=== PATIENT | male | born 1945 | race Caucasian/White ===

== ENCOUNTER → 2017-04-03 | Outpatient (CLI) | payer MEDICARE ==
[2017-04-03 10:20] LABS: BASO # 0.1 10^3/uL (0.0-0.2); BASO % 0.8 % (0.0-1.0); EOS # 0.1 10^3/uL (0.0-0.50); EOS % 1.1 % (0.0-3.0); IMMATURE GRANULOCYTE % 0.4 % (0-0); LYMPH # 1.4 10^3/uL (1.5-4.5); LYMPH % 19.3 % (24.0-44.0); MEAN CORPUSCULAR HEMOGLOBIN 32.5 pg (27.0-33.0); MEAN CORPUSCULAR HGB CONC 34.4 g/dl (32.0-36.5); MEAN CORPUSCULAR VOLUME 94.4 fl (80.0-96.0); MONO # 0.7 10^3/uL (0.0-0.8); MONO % 9.2 % (0.0-5.0); NEUTROPHILS % 69.2 % (36.0-66.0); PLATELET COUNT, AUTOMATED 210 10^3/uL (150-450); RED CELL DISTRIBUTION WIDTH 12.2 % (11.5-14.5); WHITE BLOOD COUNT 7.3 10^3/uL (4.0-10.0)
[2017-04-03 10:56] LABS: ANION GAP 5 MEQ/L (8-16); BLOOD UREA NITROGEN 15 MG/DL (7-18); CALCIUM LEVEL 8.9 MG/DL (8.8-10.2); CARBON DIOXIDE LEVEL 29 MEQ/L (21-32); CHLORIDE LEVEL 104 MEQ/L (98-107); CREATININE FOR GFR 0.98 MG/DL (0.70-1.30); GLOMERULAR FILTRATION RATE > 60.0 (>42); GLUCOSE, FASTING 97 MG/DL (83-110); POTASSIUM SERUM 4.4 MEQ/L (3.5-5.1); SODIUM LEVEL 138 MEQ/L (136-145)
== END ==
LOC: M LAB 09:48
PROVIDERS: ATTEND Physician Assistant
DX: R94.39 Abnormal result of other cardiovascular function study (principal)

== ENCOUNTER → 2018-02-15 | Outpatient (REF) | payer MEDICARE ==
[2018-02-16 12:42] LABS: HEPATITIS C VIRUS ABY INDEX 0.2 INDEX (<0.8)
== END ==
LOC: M LAB REF 12:50
DX: Z11.59 Encounter for screening for other viral diseases (principal)
CPT/HCPCS: 86803

== ENCOUNTER → 2018-08-20 | Outpatient (REF) | payer MEDICARE ==
[2018-08-22 00:06] LABS: Lyme Disease IgG/IgM Antibodie <0.91 ISR (0.00-0.90); Lyme Disease IgM Ab Quantitati <0.80 index (0.00-0.79)
== END ==
LOC: M LAB REF 12:28
PROVIDERS: ATTEND Nurse Practitioner Adult Health
DX: Z11.59 Encounter for screening for other viral diseases (principal)

== ENCOUNTER → 2020-10-28 | Outpatient (CLI) | payer MEDICARE ==
[~2020-10-28] MED LIST: ATOR40TA75 PO; BISO5TAB14 PO; ECOT81TA5 PO; FINA5TAB2 PO; INTRTAB PO; LISI20TA33 PO; VITA500C19 PO
== END ==
LOC: M LABSMTC 13:30
PROVIDERS: ATTEND Anesthesiology
DX: Z01.812 Encounter for preprocedural laboratory examination (principal); Z20.822 Contact with and (suspected) exposure to COVID-19

== ENCOUNTER 2020-11-02 08:11 | Day surgery (SDC) | payer MEDICARE ==
[~2020-11-02] VITALS: Ht 175.3 cm; Wt 70.3 kg
[~2020-11-02 08:11] MED LIST changes: +CEFUROXIME 1MG/0.1ML INTRACAMERAL INJ As Ordered ONE; +DUOVISC (0.50ML VISCOAT/0.55ML PROVISC) OPHTH KIT As Ordered ONE; +MIDAZOLAM INJ 2MG/2ML VIAL (J2250 PER 1MG) As Ordered ONE; +OFLOXACIN 0.3 % (OCUFLOX) OPTH SOL 5ML OS ONE; +PHENYLEPHRINE 2.5% OPHTH SOL 2ML OS ONE; +POVIDONE-IODINE 5% OPHTH PREP SOL 30ML As Ordered ONE; +PROPARACAINE 0.5% OPHTH SOL 15ML OS ONE; +TROPICAMIDE 1% OPHTH SOLN 2ML OS ONE; +fentaNYL 100 MCG/2 ML INJECTION (J3010) As Ordered ONE
[2020-11-02] MEDS ORDERED: BSS IRR 500ML/OMIDRIA 4ML IRR BAG (OR ONLY) As Ordered ONE (08:28)
[2020-11-02] MEDS ORDERED: ACETYLCHOLINE OPHTH SOLN 1% 2ML (MIOCHOL-E) As Ordered ONE (10:30)
[2020-11-02] MEDS ORDERED: DUOVISC (0.50ML VISCOAT/0.55ML PROVISC) OPHTH KIT As Ordered ONE (10:31)
[2020-11-02 11:40] VITALS: BP 171/79
--- NOTE | 2020-11-04 10:53 | RO ---
OPERATIVE NOTE DATE OF OPERATION: 11/02/2020 PREOPERATIVE DIAGNOSIS: 1. Visually significant nuclear sclerotic cataract, left eye. POSTOPERATIVE DIAGNOSIS: 1. Visually significant nuclear sclerotic cataract, left eye. PROCEDURE: 1. Cataract extraction with use of phacoemulsification, and placement of intraocular lens, [id number], 18.0 D, left eye. SURGEON: Bismark Elise DO [employer] PR[employer] OPERATOR: ANESTHESIA: Local (Omidria) with MAC. COMPLICATIONS: None POSTOPERATIVE CONDITION: Stable INDICATIONS FOR SURGERY: 1. Blurred vision affecting patient's activities of daily living. DESCRIPTION OF PROCEDURE: The patient was seen in the preoperative area and properly identified. The correct operative eye was identified and marked. The patient received topical anesthetic, antibiotics, and topical dilating drops. The patient was then transferred to the operating room. The correct side was re-identified and a time out was performed. The eye was prepped and draped in a sterile fashion. The eyelids were isolated with Tegaderm tape and the lids were held open with an adjustable speculum. A 1.0 mm paracentesis incision was made. Omidria was then injected into the anterior chamber. Viscoelastic was then injected into the anterior chamber through the paracentesis. Using a 2.4 mm sharp-tipped keratome, the anterior chamber was entered via a temporal clear cornea incision. A continuous curvilinear capsulorrhexis was created with Utrata forceps. Hydrodissection was performed with BSS on a blunt cannula until the nucleus was able to rotate freely. The crystalline lens was phacoemulsified and aspirated. Irrigation/aspiration was used to remove the cortical material Cohesive viscoelastic was placed into the capsular bag to deepen it. The implant was placed into the capsular bag and allowed to unfold. Placement was confirmed by visualizing the anterior capsulorrhexis. Irrigation/aspiration was used to remove the viscoelastic. The clear corneal incision was hydrated with BSS on a blunt cannula. The lens was well positioned. Intracameral antibiotic was injected into the anterior chamber. The incisions were then tested for leaks and found to be negative. The eye was then palpated for appropriate pressure and adjusted accordingly with BSS. The eyelid speculum was then carefully removed. A shield was placed over the eye. The patient tolerated the procedure well and was discharge to the recovery unit in a stable condition.
== END 2020-11-02 11:40 | disposition home or self-care (01) ==
LOC: M SDC 08:11
PROVIDERS: ATTEND Ophthalmology
DX: H25.12 Age-related nuclear cataract, left eye (principal); I11.9 Hypertensive heart disease without heart failure; I25.2 Old myocardial infarction; Z95.5 Presence of coronary angioplasty implant and graft; R94.31 Abnormal electrocardiogram [ECG] [EKG]; E78.00 Pure hypercholesterolemia, unspecified; K21.9 Gastro-esophageal reflux disease without esophagitis; K59.00 Constipation, unspecified; M19.90 Unspecified osteoarthritis, unspecified site; R51.9 Headache, unspecified; R06.83 Snoring; N40.0 Benign prostatic hyperplasia without lower urinary tract symptoms; Z87.891 Personal history of nicotine dependence; Z79.899 Other long term (current) drug therapy; Z79.82 Long term (current) use of aspirin
CPT/HCPCS: 66984; J1097; J2250; J3010; V2632

== ENCOUNTER 2021-02-28 19:55 | Emergency (ER) | payer MEDICARE ==
[~2021-02-28] VITALS: Ht 177.8 cm; Wt 68.0 kg
[~2021-02-28 19:55] MED LIST changes: -CEFUROXIME 1MG/0.1ML INTRACAMERAL INJ As Ordered ONE; -DUOVISC (0.50ML VISCOAT/0.55ML PROVISC) OPHTH KIT As Ordered ONE; -MIDAZOLAM INJ 2MG/2ML VIAL (J2250 PER 1MG) As Ordered ONE; -OFLOXACIN 0.3 % (OCUFLOX) OPTH SOL 5ML OS ONE; -PHENYLEPHRINE 2.5% OPHTH SOL 2ML OS ONE; -POVIDONE-IODINE 5% OPHTH PREP SOL 30ML As Ordered ONE; -PROPARACAINE 0.5% OPHTH SOL 15ML OS ONE; -TROPICAMIDE 1% OPHTH SOLN 2ML OS ONE; -fentaNYL 100 MCG/2 ML INJECTION (J3010) As Ordered ONE
--- OUTSIDE RECORDS SUMMARY | 2021-02-28 20:42 | CCD | Continuity of Care Document ---
Author Author Graeme Jules Organization Unknown Address [address] [facility] [address] [place] [address] Phone [phone] Care Team Providers Care Ear Nose Throat Physician Name Role Phone Fortino Fajardo MD AUTM [phone] Lucinda Meade MD AUTM [phone] Vickie Jules AUTM [phone] Bismark Elise DO AUTM [phone] Problems Active Problems Provider Date Degenerative joint disease involving multiple joints Caroline Strauss D.O. Onset: 04/13/2011 Essential hypertension Caroline Strauss D.O. Onset: Coronary arteriosclerosis Caroline Strauss D.O. Onset: 04/13/2011 Benign prostatic hyperplasia without outflow obstructi on Caroline Strauss D.O. Onset: 04/13/2011 Gastroesophageal reflux disease Caroline Strauss D.O. O nset: 04/13/2011 Hiatal hernia RACIEL Ramirez Onset: 07/06/2016 Social History Type Date Description Comments Sex Unknown ETOH Use Consumes 2 beers per day ETOH Use Occasionally consumes liquor Tobacco Use Start: Unknown Patient has never smoked Allergies and adverse reactions Description No Known Drug Allergies Medications Active Medications SIG Qnty Indications Ordering Provide r Date Bisoprolol Fumarate 5mg Tablets Take One Tablet By Mouth Every Day 90tabs RACIEL Ramirez 0 12/25/2020 Finasteride 5mg Tablets Take One Tablet By Mouth Every Day 90tabs RACIEL Ramirez 04/10/2019 Atorvastatin Calcium 40mg Tablets Take One Tablet By Mouth Every Day 90tabs Luis E Freedman MD 03/06/2019 [place]-Smoothe/FS Scalp 0.01% Oil apply to scalp leave on overnight and wash out, as needed 118.280ml Vickie Jules, [facility] 12/07/2017 Aspirin Adult Low Strength 81mg Tablets DR 1 by mouth every day 30tabs Vickie Jules, ANP 02/08/2017 Multivitamins Tablets 1 po q d Caroline Strauss D.OClary 09/29/2010 Lisinopril 20mg Tablets take one tablet by mouth every day 90tabs Vickie Jules, ANP 03/23/2009 Nitrostat 0.4mg Tablets Sub one under tongue every 5 minutes x 3 as needed for chest discomfort 25tabs Vickie Jules, [facility] 10/31/2008 Vit B 12 1000mcg Tablets 1 po qd 30tabs Kendra Grace.O. 11/23/2007 Vitamin C Plus [place] 500mg Chewtabs 1 PO qd Unknown Motrin Ib 200mg Tablets 2 by mouth as needed since falling Unknown Medications Administered in Office Medication SIG Qnty Indications Ordering Provider Date Administration Of Flu Vaccine Inj ection Vickie Jules, RACIEL 02/17/2021 Administration Of Flu Vaccine Inj ection Vickie Jules, [facility] 01/28/2020 Administration Of Flu Vaccine Inj ection Vickie Jules, [facility] 02/19/2019 Immunization Adminstration,1 Vaccine/Tox oid Injection Vickie Jules, RACIEL 019 Administration Of Flu Vaccine Inj ection Vickie Jules, [facility] 02/15/2018 Administration Of Flu Vaccine Inj ection Caroline Strauss D.O. 04/16 Administration Of Flu Vaccine Inj fawadion Caroline Strauss D.O. 03/12 Immunizations CPT Code Status Date Vaccine Lot # [id number] Given 02/17/2021 Influenza Vaccin e Quadrivalent Preser/Antibiotic Free Im Use [id number] 00913 Given 01/28/2020 Influenza Vaccin e Quadrivalent Preser/Antibiotic Free Im Use [id number] 56540 Given 02/19/2019 Influenza Vaccin e Quadrivalent Preser/Antibiotic Free Im Use [id number] 83446 Given 08/14/2018 Shingrix Zoster Vaccine (HZV), Recombinant, Subunit, Adjuvanted 83559 Given 07/20/2018 Adacel- Tetanus Diphtheria P ertussis [id number] 37688 Given 02/15/2018 Influenza Virus Vaccine, Quadrivalent (Cciiv4), Derived From Cell U-Pneum Given 05/30/2017 Pneumococcal,Unspecified U-Flu Given 05/30/2017 Influenza,Unspecified U-Pneum Given 05/29/2017 Pneumococcal,Unspecified U-PneuC Given 02/01/2016 Prevnar 13 Q2037 Given 04/16/2013 Fluvirin Virus Vaccine 78882 Given 04/17/2012 Pneumovax 23 Q2037 Given 04/13/2011 Fluvirin Virus Vaccine 76705 Given 03/24/2010 Influenza Virus Vaccine 41498 Given 03/23/2009 Influenza Virus Vaccine 03277 Given 03/31/2008 Influenza Virus Vaccine 01540 Given 05/01/2006 Pneumovax 23 57708 Given 05/01/2006 Influenza Virus Vaccine 69610 Given 03/12/2003 Influenza Virus Vaccine Vital Signs Date Vital Result Comment 02/17/2021 2:17pm BP Systolic 122 mmHg BP Diastolic 80 mmHg Heart Rate 58 /min Height 68 inches 5'8" Weight 150.00 lb BMI (Body Mass Index) 22.8 kg/m2 12/25/2020 8:48am BP Systolic 136 mmHg BP Diastolic 74 mmHg Heart Rate 60 /min Height 68 inches 5'8" Weight 152.00 lb BMI (Body Mass Index) 23.1 kg/m2 Results Test Acquired Date Facility Test Result H/L Range Note Complete Blood Count 02/17/2021 [facility] Emd Teacher: Dr Luis E Freedman [place], [place] [address] [phone] WBC 7.0 x10*3/UL 4.1 - 10.9 RBC 3.72 x10*6/UL Low 4.20 - 6.30 Hemoglobin 12.1 g/dL 12.0 - 18.0 Hematocrit 34.5 % Low 37.0 - 51.0 MCV 92.7 fL 80.0 - 97.0 MCH 32.6 pg High 26.0 - 32.0 MCHC 35.2 g/dL 31.0 - 38.0 RDW 13.3 % 11.6 - 13.7 PLT 220 x10*3/UL 140 - 440 MPV 8.6 FL 7.8 - 11.0 Lymph % 22.5 % 10.0 - 58.5 Mid % 5.6 % 1.7 - 9.3 Neut % 71.9 % 37.0 - 92.0 Lymph # 1.5 x10*3/UL 0.6 - 4.1 Mid # 0.5 x10*3/UL 0.1 - 0.6 Neut # 5.0 x10*3/UL 2.0 - 7.8 Comprehensive Chem Profile 02/17/2021 [facility] Emd Teacher: [place] [address] [phone] Glucose 100 mg/dL High 74 - 99 1 BUN 16 mg/dL 7 - 18 Creatinine 1.2 mg/dL 0.6 - 1.3 Sodium 139 mEq/L 136 - 145 Potassium 4.2 mEq/L 3.5 - 5.1 Chloride 104 mEq/L 98 - 107 Carbon Dioxide 29 mEq/L 21 - 32 Calcium 8.9 mg/dL 8.5 - 10.1 Alk. Phosphatase 113 mg/dL 46 - 116 Total Bilirubin 0.8 mg/dL 0.2 - 1.0 Ast (Sgot) 24 U/L 15 - 37 Alt (SGPT) 28 U/L 12 - 78 Albumin 4.0 g/dL 3.4 - 5.0 Total Protein 7.0 g/dL 6.4 - 8.2 A/G Ratio 1.33 CALC 1.00 - 1.90 GFR 59 mL/min Low >60 GFR >= 60 mL/min >60 2 Lipid Profile 02/17/2021 [facility] Emd Teacher: [place] [address] [phone] Cholesterol 140 mg/dL 131 - 200 Triglycerides 26 mg/dL Low 30 - 150 HDL Cholesterol 97 mg/dL High 35 - 60 LDL (Calculated) 38 CALC Low 50 - 159 1 100-125 mg/dL PRE-DIABET ES/FASTING >126 mg/dL DIABETES/FASTING 2 CHRONIC KIDNEY DISEASE STAGI NG PER NKF STAGE I & II GFR >= 60 NORMAL TO MILDLY DECREASED STAGE III GFR 30-59 MODERATELY DECREASED STAGE IV GFR 15-29 SEVERELY DECREASED STAGE V GFR <15 VERY LITTLE GFR LEFT ESRD GFR <15 ON KITCHEN CLEANER Procedures Date Code Description Status 02/17/2021 29940 Office/Outpatient Established Mo d MDM 30-39 Min Completed 02/17/2021 03336 Dest Premalignant Lesion 2-14 Co mpleted 02/17/2021 36065 Destruction Premalignant Lesion Completed 01/04/2021 [id number] Diabetic Retinal Eye Exam Comple shellie 12/25/2020 07541 Office/Outpatient Established Mo d MDM 30-39 Min Completed 12/25/2020 38983 EKG/Interpretation & Report Comp leted 12/24/2020 [id number] Diabetic Retinal Eye Exam Comple shellie 11/03/2020 [id number] Diabetic Retinal Eye Exam Comple shellie 10/26/2020 [id number] Diabetic Retinal Eye Exam Comple shellie 02/28/2014 [id number] Colonoscopy Completed 06/09/2003 [id number] Colonoscopy Completed Medical Devices Description No Information Available Encounters Type Date Location Provider Dx Diagnosis Office Visit 02/17/2021 2:20p [facility] Vickie Jules, ANP I25.10 Athscl heart disease of [place] coronary artery w/o ang pctrs I10 Essential (primary) hyperten golden N40.0 Benign prostatic hyperplasia without lower urinry tract symp E78.00 Pure hypercholesterolemia, u nspecified L57.0 Actinic keratosis Z23 Encounter for immunization Office Visit 12/25/2020 9:00a [facility] 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 , left eye I25.10 Athscl heart disease of [place] coronary artery w/o ang pctrs I10 Essential (primary) hyperten golden R00.1 Bradycardia, unspecified Assessments Date Code Description Provider 02/17/2021 I25.10 Atherosclerotic hear t disease of [place] coronary artery without angina pectoris Vickie Jules, ANP 02/17/2021 I10 Essential (primary) hypertension Vickie Jules, RACIEL 02/17/2021 N40.0 Benign prostatic hyperplasia wit hout lower urinary tract sym RACIEL Ramirez 02/17/2021 E78.00 Pure hypercholesterolemia, unspe cified RACIEL Ramirez 02/17/2021 L57.0 Actinic keratosis RACIEL Macario 02/17/2021 Z23 Encounter for immunization RACIEL Ramirez 12/25/2020 Z01.810 Encounter for preprocedural card iovascular examination Boby Freedman, DO 12/25/2020 H27.122 Anterior dislocation of lens, le ft eye Boby Freedman, DO 12/25/2020 I25.10 Atherosclerotic hear t disease of [place] coronary artery without angina pectoris Boby Freedman, 12/25/2020 I10 Essential (primary) hypertension Boby Freedman, DO 12/25/2020 R00.1 Sinus bradycardia Boby chance, Plan of Treatment Future Appointment(s):* 08/10/2021 9:00 am - RACIEL Ramirez at [facility] * 08/10/2021 8:40 am - Nurse #2 at [facility] 02/17/2021 - RACIEL Ramirez* I25.10 Atherosclerotic heart disease of [place] coronary artery without angina pectoris * I10 Essential (primary) hypertension * N40.0 Benign prostatic hyperplasia without lower urinary tract sym * E78.00 Pure hypercholesterolemia, unspecified * L57.0 Actinic keratosis * Z23 Encounter for immunization Functional Status Description No Information Available Mental Status Description No Information Available Referrals Description No Information Available
--- OUTSIDE RECORDS SUMMARY | 2021-02-28 20:43 | CCD | Continuity of Care Document ---
Author Author Graeme Jules Organization Unknown Address [address] [facility] [address] [place] [address] Phone [phone] Care Team Providers Care Video Game Animator Name Role Phone Fortino Fajardo MD AUTM [phone] Lucinda Meade MD AUTM [phone] Vickie Jules AUTM [phone] Bismark Elise DO AUTM [phone] Problems Active Problems Provider Date Degenerative joint [...] Day 90tabs Luis E Freedman MD 03/06/2019 [place]-Smoothe/FS Scalp 0.01% Oil apply to scalp leave on overnight and wash out, as needed 118.280ml Vickie Jules, RACIEL 12/07/2017 Aspirin Adult Low Strength 81mg Tablets DR 1 by mouth every day 30tabs Vickie Jules, RACIEL 02/08/2017 Multivitamins Tablets 1 po q d Caroline Strauss D.O. 09/29/2010 Lisinopril 20mg Tablets take one tablet by mouth every day 90tabs Vickie Jules, RACIEL 03/23/2009 Nitrostat 0.4mg Tablets Sub one under tongue every 5 minutes x 3 as needed for chest discomfort 25tabs Vickie Jules, RACIEL 10/31/2008 Vit B 12 1000mcg Tablets 1 po qd 30tabs Kendra Grace.O. 11/23/2007 Vitamin C Plus [place] Hips 500mg Chewtabs 1 PO qd Unknown Motrin Ib 200mg Tablets 2 by mouth as needed since falling Unknown Medications Administered in Office Medication SIG Qnty Indications Ordering Provider Date Administration Of Flu Vaccine Inj ection Vickie Jules, RACIEL 01/28/2020 Administration Of Flu Vaccine Inj fawadion Vickie Jules, RACIEL 02/19/2019 Immunization Adminstration,1 Vaccine/Tox oid Injection Vickie Jules, RACIEL 019 Administration Of Flu Vaccine Inj fawadion Vickie Jules, RACIEL 02/15/2018 Administration Of Flu Vaccine Inj ection Kendra Grace.O. 04/16 Administration Of Flu Vaccine Inj ection Caroline Strauss D.O. 03/12 Immunizations CPT Code Status Date Vaccine Lot # [id number] Given 02/17/2021 Influenza Vaccin e Quadrivalent Preser/Antibiotic Free Im Use [id number] 01616 Given 01/28/2020 Influenza Vaccin e Quadrivalent Preser/Antibiotic Free Im Use 123803 02192 Given 02/19/2019 Influenza Vaccin e Quadrivalent Preser/Antibiotic Free Im Use [id number] 53233 Given 08/14/2018 Shingrix Zoster Vaccine (HZV), Recombinant, Subunit, Adjuvanted 89343 Given 07/20/2018 Adacel- Tetanus Diphtheria P ertussis [id number] 93856 Given 02/15/2018 Influenza Virus Vaccine, Quadrivalent (Cciiv4), Derived From Cell U-Pneum Given 05/30/2017 Pneumococcal,Unspecified U-Flu Given 05/30/2017 Influenza,Unspecified U-Pneum Given 05/29/2017 Pneumococcal,Unspecified U-PneuC Given 02/01/2016 Prevnar 13 Q2037 Given 04/16/2013 Fluvirin Virus Vaccine 99450 Given 04/17/2012 Pneumovax 23 Q2037 Given 04/13/2011 Fluvirin Virus Vaccine 11451 Given 03/24/2010 Influenza Virus Vaccine 45526 Given 03/23/2009 Influenza Virus Vaccine 75062 Given 03/31/2008 Influenza Virus Vaccine 99223 Given 05/01/2006 Pneumovax 23 65238 Given 05/01/2006 Influenza Virus Vaccine 79072 Given 03/12/2003 Influenza Virus Vaccine Vital Signs [...] H/L Range Note Complete Blood Count 02/17/2021 [facility] [place]: [place] [address] [phone] WBC 7.0 x10*3/UL 4.1 - 10.9 RBC [...] 2.0 - 7.8 Comprehensive Chem Profile 02/17/2021 [facility] [place]: [place] [address] [phone] Glucose 100 mg/dL High 74 - 99 [...] 60 mL/min >60 2 Lipid Profile 02/17/2021 [facility] [place]: [place] [address] [phone] Cholesterol 140 mg/dL 131 - 200 Triglycerides [...] LITTLE GFR LEFT ESRD GFR <15 ON COLLECTIONS DIRECTOR Procedures Date Code Description Status 01/04/2021 [id number] Diabetic Retinal Eye Exam Comple shellie 12/25/2020 63782 Office/Outpatient Established Mo d MDM 30-39 Min Completed 12/25/2020 05188 EKG/Interpretation & Report Comp leted 12/24/2020 [id number] Diabetic Retinal Eye Exam Comple shellie 11/03/2020 [id number] Diabetic Retinal Eye Exam Comple shellie 10/26/2020 020403046 Diabetic Retinal Eye Exam Comple shellie 02/28/2014 [id number] Colonoscopy Completed 06/09/2003 [id number] Colonoscopy Completed Medical Devices Description No Information Available Encounters Type Date Location Provider Dx Diagnosis Office Visit 12/25/2020 9:00a [facility] 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 coronary artery without angina pectoris Boby Freedman DO 12/25/2020 I10 Essential (primary) hypertension Boby Freedman DO 12/25/2020 R00.1 Sinus bradycardia Boby chance DO Plan of Treatment Future Appointment(s):* 08/10/2021 9:00 am - RACIEL Ramirez at [facility] * 08/10/2021 8:40 am - Nurse #2 at [facility] 12/25/2020 - Boby Freedman DO* Z01.810 Encounter for preprocedural cardiovascular examination* Comments:* Low risk for low risk surgery, continue ASA and statin perioperatively. Weaning down on bisoprolol. * H27.122 Anterior dislocation of lens, left eye * I25.10 Atherosclerotic heart disease of [place] coronary artery without angina pectoris * I10 Essential (primary) hypertension* Comments:* Decent control today, will continue current regimen. * R00.1 Sinus bradycardia* Comments:* Asymptomatic, Decrease bisoprolol and follow up, may need to discontinue. * All * New Medication:* Bisoprolol Fumarate 5 mg - Take One Tablet By Mouth Every Day Functional Status Description No Information Available Mental Status Description No Information Available Referrals Description No Information Available
--- OUTSIDE RECORDS SUMMARY | 2021-02-28 20:43 | CCD ---
Author Author Samuel Joyner MD [facility] Organization Samuel Joyner MD [facility] Address [address] [facility] [address] [place] [address] Phone Care Team Providers Care Outside Sales Representative Name Role Phone Gosia REED Bismark Unavailable [phone] Reason for Referral No Reason for Referral Recorded Problems Includes: Active, inactive, and resolved Problems All Visits Onset Date - Time Resolved Date - Time Provider Co ndition Status Pseudophakia 11/04/2020 - 12:00AM Bismark Elise DO Active Corneal Edema 11/04/2020 - 12:00AM 12/07/2020 - 3:34PM Bismark gotti DO Resolved Cataract Senile Nuclear 10/21/2020 - 12:00AM Bismark bills DO Active Dry Eye Syndrome 10/21/2020 - 12:00AM Bismark mcgraw DO Active Vitreous Disorders Degeneration 10/21/2020 - 12:00AM Whit Elise DO Active Plan of Treatment Pending Tests Order Diagnosis Results Due Ordering Provi rajan Testing Ordered - AScan A-Scan IOL Master Age-related nucl ear cataract, bilateral 12/20/20 Bismark Elise DO Assessments Includes: Assessments for all patient encounters Findings Encounter Date Pseudophakia 3 - 4 Week Follow-Up with Bismark cervantes DO 12/07/2020 Corneal edema 1 Day Post OP with Bismark Elise DO 11/04/2020 Pseudophakia 1 Day Post OP with Bismark Elise DO 11/04/2020 Dry eye syndrome NEW PATIENT WITH REFERRAL with Bismark bills DO 10/21/2020 Nuclear senile cataract NEW PATIENT WITH REFERRAL with Juan A Elise DO 10/21/2020 Vitreous degeneration NEW PATIENT WITH REFERRAL with Bismark Elise DO 10/21/2020 Instructions Instructions not supported for this document typeNo Instructions Recorded Medical Equipment - Implanted Devices Includes: Current and historical DevicesNo Medical Equipment Recorded Medications Includes: Current and historical Medications Current Medications (continue as prescribed) Finasteride 5 MG Oral Tablet 10/21/2020 Provider: Diagnosis: Asprin 82.5 MG Oral Tablet 10/21/2020 Provider: Diagnosis: Bisoprolol Fumarate 5 MG Oral Tablet 10/21/2020 Pro vider: Diagnosis: [facility] Vitamin B12 1000 MCG Oral Tablet 10/21/2020 Pro vider: Diagnosis: Calcium 500/Vitamin D 500-125 MG-UNIT Oral Tablet 10/21/2020 Provider: Diagnosis: Lisinopril 20 MG Oral Tablet 10/21/2020 Provider: Diagnosis: Atorvastatin 40 MG Oral Tablet 10/21/2020 Provider: Diagnosis: Past Medications on file Inveltys 1% Ophthalmic Suspension 11/23/2020 - 12/07/2020 Pr ovider: Bismark Elise DO Diagnosis: Age-related nuclear cataract, left eye Day of surgery remove patch start one dr op two times a day in the left eye, RUN CARD. SEE PHARM NOTES BromSite 0.075% Ophthalmic Solution 11/23/2020 - 12/07/2020 Provider: Bismark Elise DO Diagnosis: Age-related nuclear cataract, left eye Three days prior to surgery start one dr op two times a day in the left eye, RUN CARD. SEE PHARM NOTES Inveltys 1% Ophthalmic Suspension 10/21/2020 - 11/23/2020 Pr ovider: Bismark Elise DO Diagnosis: Age-related nuclear cataract, left eye Day of surgery remove patch start one dr op two times a day in the left eye, RUN CARD. SEE PHARM NOTES Moxifloxacin HCl 0.5% Ophthalmic Solution 10/21/2020 - 12/07 Provider: Bismark Elise DO Diagnosis: Age-related nuclear cataract, left eye Three days prior to surgery start one drop four times a day in the left eye BromSite 0.075% Ophthalmic Solution 10/21/2020 - 11/23/2020 Provider: Bismark Elise DO Diagnosis: Age-related nuclear cataract, left eye Three days prior to surgery start one dr op two times a day in the left eye, RUN CARD. SEE PHARM NOTES Medications Administered Includes: Administered Medications in patient's chartNo Administered Medications Recorded Vital Signs Includes: Vital Signs from 12/08/2019 through 12/07/2020No Vital Signs Recorded For Specified Dates Results Includes: Results from 12/08/2019 through 12/07/2020No Results Recorded For Specified Dates History of Present Illness History of Present Illness not supported for this document typeNo History of Present Illness Recorded Social History Description Last Updated Previous smoking history 12/07/2020 No tobacco use 12/07/2020 Not using drugs 12/07/2020 Smoking status : Former smoker 12/07/2020 A social drinker 10/21/2020 Tobacco non-user 10/21/2020 Procedures and Surgical History Includes: Procedures from 12/08/2019 through 12/07/2020 Procedures Code Diagnosis Performing Provider Service Location Service Date Extracapsular cataract removal with intraocular lens implant (Left side) 30197 Age-related nuclear cataract, left eye Bismark Elise DO [facility] 11/02/2020 Ophthalmic biometry - IOL Master with IO L calculation (Left side, WAIVER OF LIABILITY ON FILE (ABN)) 34856 Age-related nuclear cataract, left eye Bismark Zarco MD [facility] 10/21/2020 Comprehensive Eye Exam (Signi/Sep Eval. & Man.) 46612 Age-related nuclear cataract, bilateral Bismark Zarco MD [facility] 10/21/2020 Surgical History Last Updated History of extracapsular cataract extraction PCIOL OS Dr Elise 11/02/2020 11/04/2020 Surgical / procedural history Fractured Back 1983. Fractured Arms 1995. 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 Medical History Includes: Medical History in patient's chart Description Last Updated No recent change in medical history 11/13/2020 Reported medical history Heart Attack 200510/21/2020 Currently wearing eyeglasses 10/21/2020 History of hyperlipidemia 10/21/2020 History of hypertension 10/21/2020 Family History Includes: Family History in patient's chart Description Last Updated Paternal history of cataract 12/07/2020 Son's history of glaucoma 12/07/2020 Son's history of macular degeneration 12/07/2020 Sororal history of family history of cancer 12/07/2020 Review of Systems Review of Systems not supported for this document typeNo Review of Systems Recorded Mental Status Mental Status not supported for this document type Description Oriented to time, place, and person Functional Status Functional Status not supported for this document typeNo Functional Status Recorded Physical Exam Physical Exam not supported for this document typeNo Physical Exam Recorded Immunizations Includes: Immunizations in patient's chartNo Immunizations Recorded Allergies Includes: Active, inactive, and resolved AllergiesNo Known Allergies Encounters Includes: Encounters from 12/08/2019 through 12/07/2020 Encounter Provider Location Date Check-In Time Check-Out Time D iagnosis 3 - 4 Week Follow-Up Bismark Zarco MD [facility] 12/07/2020 2:46PM 11/13/2020 11:59PM Pseudophakia Rx Refills/Changes Bismark Elise DO 11/23/2020 021 9:09AM 11/13/2020 11:59PM 1 Week Post OP Bismark Zarco MD [facility] 11/14/19 7:24AM 8:23AM 1 Day Post OP Bismark Zarco MD [facility] 8:00AM 9:24AM Pseudophakia, Corneal Edema Extracapsular cataract removal w/IOL implant Bismark De La Cruz in [facility] 11/02/2020 6:39AM 6:39AM NEW PATIENT WITH REFERRAL Bismark Zarco MD [facility] 10/21/2020 8:17AM 9:43AM Dry Eye Syndrome, Ca taract Senile Nuclear, Vitreous Disorders Degeneration Insurance Includes: Active Insurance Policies Plan Name Member ID Group # Subscriber Relationship Effective Da jan 1 - MEDICARE LIUDMILA [id number] Graeme Jones Self Advance Directives Includes: Current Advance DirectivesNo Advance Directives Recorded Health Concerns Includes: Active Health ConcernsNo Active Health Concerns Recorded Goals Includes: Active GoalsNo Active Goals Recorded Interventions Includes: Interventions for active GoalsNo Interventions Recorded Evaluations & Outcomes Includes: Evaluations & Outcomes for active GoalsNo Outcomes Recorded
--- OUTSIDE RECORDS SUMMARY | 2021-02-28 20:43 | CCD ---
Author Author Samuel Joyner MD [facility] Organization Samuel Joyner MD [facility] Address [address] [facility] [address] [place] [address] Phone Care Team Providers Care Cementer Hand Name Role Phone Gosia REED Bismark Unavailable [phone] Reason for Referral No Reason for Referral Recorded Problems Includes: Active, inactive, and resolved Problems All Visits Onset Date - Time Resolved Date - Time Provider Co ndition Status Subluxation of Lens 12/24/2020 - 12:00AM Bismark herrera DO Active Pseudophakia 11/04/2020 - 12:00AM Bismark Elise DO [...] all patient encounters Findings Encounter Date Pseudophakia TRIAGE NON URGENT with Bismark Elise DO 12/24/2020 Subluxation of lens TRIAGE NON URGENT with Bismark Elise DO 12/24/2020 Pseudophakia 3 - 4 Week Follow-Up with Bismark cervantes DO 12/07/2020 Corneal edema 1 Day Post OP with Bismark Elise DO 11/04/2020 Pseudophakia 1 Day Post OP with Bismark Elise DO 11/04/2020 Dry eye syndrome NEW PATIENT WITH REFERRAL with Bismark [facility] 10/21/2020 Nuclear senile cataract NEW PATIENT WITH REFERRAL with Juan A dell Gosia REED 10/21/2020 Vitreous degeneration NEW PATIENT WITH REFERRAL [...] days prior to surgery start one dr ibrahim two times a day in the left eye, RUN CARD. SEE PHARM NOTES Medications Administered Includes: Administered Medications in patient's chartNo Administered Medications Recorded Vital Signs Includes: Vital Signs from 12/25/2019 through 12/24/2020No Vital Signs Recorded For Specified Dates Results Includes: Results from 12/25/2019 through 12/24/2020No Results Recorded For Specified Dates History of Present Illness History of Present Illness not supported for this document typeNo History of Present Illness Recorded Social History Description Last Updated Previous smoking history 12/24/2020 No tobacco use 12/24/2020 Not using drugs 12/24/2020 Smoking status : Former smoker 12/24/2020 A social drinker 10/21/2020 Tobacco non-user 10/21/2020 Procedures and Surgical History Includes: Procedures from 12/25/2019 through 12/24/2020 Procedures Code Diagnosis Performing Provider Service Location Service Date Extracapsular cataract removal with intraocular lens implant (Left side) 80312 Age-related nuclear cataract, left eye Bismark Elise DO [facility] 11/02/2020 Ophthalmic biometry - IOL Master with IO L calculation (Left side, WAIVER OF LIABILITY ON FILE (ABN)) 24440 Age-related nuclear cataract, left eye Bismark Zarco MD [facility] 10/21/2020 Comprehensive Eye Exam (Signi/Sep Eval. & Man.) 53622 Age-related nuclear cataract, bilateral Bismark Zarco MD [facility] 10/21/2020 Surgical History Last Updated History of [...] Description Last Updated Paternal history of cataract 12/24/2020 Son's history of glaucoma 12/24/2020 Son's history of macular degeneration 12/24/2020 Sororal history of family history of cancer 12/24/2020 Review of Systems Review of Systems not [...] AllergiesNo Known Allergies Encounters Includes: Encounters from 12/25/2019 through 12/24/2020 Encounter Provider Location Date Check-In Time Check-Out Time D iagnosis TRIAGE NON URGENT Bismark Zarco MD [facility] 04/2021 6:49AM 7:45AM Pseudophakia, Subluxation of Lens 3 - 4 Week Follow-Up Bismark Zarco MD [facility] 12/07/2020 2:46PM 3:36PM Pseudophakia Rx Refills/Changes Bismark Elise DO 11/23/2020 021 9:09AM 11/13/2020 11:59PM 1 Week Post OP Bismark Zarco MD [facility] 11/14/19 7:24AM 8:23AM 1 Day Post OP Bismark Zarco MD [facility] 8:00AM 9:24AM Pseudophakia, Corneal Edema Extracapsular cataract removal w/IOL implant Bismark De La Cruz in [facility] 11/02/2020 6:39AM 6:39AM NEW PATIENT WITH REFERRAL Bismark Zarco MD [facility] 10/21/2020 8:17AM 9:43AM Dry Eye Syndrome, Ca taract Senile Nuclear, Vitreous Disorders Degeneration Insurance Includes: Active Insurance Policies Plan Name Member ID Group # Subscriber Relationship Effective Da jan 1 - MEDICARE LIUDMILA [id number] Graeme Jones Self Advance Directives Includes: Current Advance DirectivesNo Advance Directives Recorded Health Concerns Includes: Active Health ConcernsNo Active Health Concerns Recorded Goals Includes: Active GoalsNo Active Goals Recorded Interventions Includes: Interventions for active GoalsNo Interventions Recorded Evaluations & Outcomes Includes: Evaluations & Outcomes for active GoalsNo Outcomes Recorded
--- OUTSIDE RECORDS SUMMARY | 2021-02-28 20:43 | CCD | Continuity of Care Document ---
Author Author Graeme SIDDIQUI DO Organization Unknown Address [address] [facility] [address] [place] [address] Phone [phone] Care Team Providers Care Aircraft Worker Name Role Phone Fortino Fajardo MD [facility] [phone] Lucinda Meade MD [facility] [phone] Vickie Jules AUTM [phone] Bismark Elise DO AUTM [phone] Problems Active Problems Provider Date Degenerative joint [...] Use Start: Unknown Patient has never smoked Allergies, Adverse Reactions, Alerts Description No Known Drug Allergies Medications Active Medications SIG Qnty Indications Ordering Provide r Date Bisoprolol Fumarate 5mg Tablets 1/2 tab by mouth every day Boby Siddiqui DO 12/26/19 21 Finasteride 5mg Tablets Take One Tablet By Mouth Every Day 30tabs RACIEL Ramirez 04/10/2019 Atorvastatin Calcium 40mg Tablets take one tablet by mouth every day 90tabs Luis E Siddiqui MD 03/06/2019 [place]-Smoothe/FS Scalp 0.01% Oil apply to scalp leave [...] 12 1000mcg Tablets 1 po qd 30tabs Caroline Strauss D.O. 11/23/2007 Vitamin C Plus [place] Hips 500mg Chewtabs 1 PO qd Unknown Motrin Ib 200mg Tablets 2 by mouth as needed since falling Unknown Medications Administered in Office Medication SIG Qnty Indications Ordering Provider Date Administration Of Flu Vaccine Inj ection Vickie Jules, RACIEL 01/28/2020 Administration Of Flu Vaccine Inj ection Vickie Jules, RACIEL 02/19/2019 Immunization Adminstration,1 Vaccine/Tox oid Injection RACIEL Ramirez 019 Administration Of Flu Vaccine Inj ection Vickie Jules, RACIEL 02/15/2018 Administration Of Flu Vaccine Inj ection Caroline Strauss D.O. 04/16 Administration Of Flu Vaccine Inj ection Caroline Strauss D.O. 03/12 Immunizations CPT Code Status Date Vaccine Lot # [id number] Given 01/28/2020 Influenza Vaccin e Quadrivalent Preser/Antibiotic Free Im Use [id number] 66815 Given 02/19/2019 Influenza Vaccin e Quadrivalent Preser/Antibiotic Free Im Use [id number] 71520 Given 08/14/2018 Shingrix Zoster Vaccine (HZV), Recombinant, Subunit, Adjuvanted 47464 Given 07/20/2018 Adacel- Tetanus Diphtheria P ertussis (Age64 & Under) [id number] 28594 Given 02/15/2018 Influenza Virus Vaccine, Quadrivalent (Cciiv4), Derived From Cell U-Pneum Given 05/30/2017 Pneumococcal,Unspecified U-Flu Given 05/30/2017 Influenza,Unspecified U-Pneum Given 05/29/2017 Pneumococcal,Unspecified U-PneuC Given 02/01/2016 Prevnar 13 Q2037 Given 04/16/2013 Fluvirin Virus Vaccine 33952 Given 04/17/2012 Pneumovax 23 Q2037 Given 04/13/2011 Fluvirin Virus Vaccine 58944 Given 03/24/2010 Influenza Virus Vaccine 62285 Given 03/23/2009 Influenza Virus Vaccine 53519 Given 03/31/2008 Influenza Virus Vaccine 95872 Given 05/01/2006 Pneumovax 23 61569 Given 05/01/2006 Influenza Virus Vaccine 80381 Given 03/12/2003 Influenza Virus Vaccine Vital Signs Date Vital Result Comment 12/25/2020 8:48am BP Systolic 136 mmHg BP Diastolic 74 mmHg Heart Rate 60 /min Height 68 inches 5'8" Weight 152.00 lb BMI (Body Mass Index) 23.1 kg/m2 07/30/2020 8:59am BP Systolic 150 mmHg BP Diastolic 88 mmHg BP Systolic Recheck 128 mmHg BP Diastolic Recheck 80 mmHg Heart Rate 52 /min Height 68 inches 5'8" Weight 157.00 lb O2 % BldC Oximetry 99 % RM Air BMI (Body Mass Index) 23.9 kg/m2 Results Test Acquired Date Facility Test Result H/L Range Note Laboratory test finding 07/30/2020 [facility] Fisher: [place] [address] [phone] PSA 0.90 ng/mL <4.00 1 1 This assay was performed on the Siemens Dimension EXL using the B- Galactosidase/CPRG methodology and should not be compared interchangeably with other methods. The PSA should not be used alone as a screening test for the presence or absence of malignant disease. Procedures Date Code Description Status 01/04/2021 706861923 Diabetic Retinal Eye Exam Comple shellie 12/25/2020 90467 Office/Outpatient Established Mo d MDM 30-39 Min Completed 12/25/2020 48578 EKG/Interpretation & Report Comp leted 12/24/2020 [id number] Diabetic Retinal Eye Exam Comple shellie 11/03/2020 [id number] Diabetic Retinal Eye Exam Comple shellie 10/26/2020 614520494 Diabetic Retinal Eye Exam Comple shellie 07/30/2020 15847 Office/Outpatient Established Lo w MDM 20-29 Min Completed 02/28/2014 14344813 Colonoscopy Completed 06/09/2003 [id number] Colonoscopy Completed Medical Devices Description No Information Available Encounters Type Date Location Provider Dx Diagnosis Office Visit 12/25/2020 9:00a [facility] 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 Vickie Jules, RACIEL I10 Essential (primary) hypertension N40.0 Benign prostatic hyperplasia without lower urinry tract symp E78.00 Pure hypercholesterolemia, u nspecified Z13.89 Encounter for screening for other disorder Assessments Date Code Description Provider 12/25/2020 Z01.810 Encounter for preprocedural card iovascular examination Boby Siddiqui, DO 12/25/2020 H27.122 Anterior dislocation of lens, le ft eye Boby Siddiqui, 12/25/2020 I25.10 Atherosclerotic hear t disease of [place] coronary artery without angina pectoris Boby Siddiqui, DO 12/25/2020 I10 Essential (primary) hypertension Boby Siddiqui, DO 12/25/2020 R00.1 Sinus bradycardia Boby chance, DO 07/30/2020 I10 Essential (primary) hypertension Vickie Jules, RACIEL 07/30/2020 N40.0 Benign prostatic hyperplasia wit hout lower urinary tract sym Vickie Jules, RACIEL 07/30/2020 E78.00 Pure hypercholesterolemia, unspe cified Vickie Jules, RACIEL 07/30/2020 Z13.89 Encounter for screening for othe r disorder RACIEL Ramirez Plan of Treatment Future Appointment(s):* 02/17/2021 2:20 pm - RACIEL Ramirez at [facility] 12/25/2020 - Boby Siddiqui DO* Z01.810 Encounter for preprocedural cardiovascular examination* Comments:* Low risk for low risk surgery, continue ASA and statin perioperatively. Weaning down on bisoprolol. * H27.122 Anterior dislocation of lens, left eye * I25.10 Atherosclerotic heart disease of [place] coronary artery without angina pectoris * I10 Essential (primary) hypertension* Comments:* Decent control today, will continue current regimen. * R00.1 Sinus bradycardia* Comments:* Asymptomatic, Decrease bisoprolol and follow up, may need to discontinue. * All * New Medication:* Bisoprolol Fumarate 5 mg - 1/2 tab by mouth every day Functional Status Description No Information Available Mental Status Description No Information Available Referrals Description No Information Available
--- OUTSIDE RECORDS SUMMARY | 2021-02-28 20:43 | CCD | Continuity of Care Document ---
Author Author Graeme SIDDIQUI DO Organization Unknown Address [address] [facility] [address] [place] [address] Phone [phone] Care Team Providers Care Regulatory Services Consultant Name Role Phone Fortino Fajardo MD AUTM [phone] Lucinda Meade MD AUTM [phone] Vickie Jules AUTM [phone] Bismark Elise DO AUTM [phone] Problems Active Problems Provider Date Degenerative joint [...] day 90tabs Luis E Siddiqui MD 03/06/2019 [place]-Smoothe/FS Scalp 0.01% Oil apply to scalp leave [...] 1000mcg Tablets 1 po qd 30tabs Caroline Strasus D.O. 11/23/2007 Vitamin C Plus [place] Hips 500mg Chewtabs 1 PO qd Unknown Motrin Ib 200mg Tablets 2 by mouth as needed since falling Unknown Medications Administered in Office Medication SIG Qnty Indications Ordering Provider Date Administration Of Flu Vaccine Inj ection Vickie Jules, RACIEL 01/28/2020 [facility], RACIEL 02/19/2019 Immunization Adminstration,1 Vaccine/Tox oid Injection Vickie Jules, RACIEL 019 Administration Of Flu Vaccine Inj ection Vickie Jules, RACIEL 02/15/2018 Administration Of Flu Vaccine Inj ection Caroline Strauss D.O. 04/16 Administration Of Flu Vaccine Inj ection Caroline Strauss D.O. 03/12 Immunizations CPT Code Status Date Vaccine Lot # [id number] Given 01/28/2020 Influenza Vaccin e Quadrivalent Preser/Antibiotic Free Im Use 138667 99243 Given 02/19/2019 Influenza Vaccin e Quadrivalent Preser/Antibiotic Free Im Use [id number] 66267 Given 08/14/2018 Shingrix Zoster Vaccine (HZV), Recombinant, Subunit, Adjuvanted 72772 Given 07/20/2018 Adacel- Tetanus Diphtheria P ertussis (Age64 & Under) [id number] 38983 Given 02/15/2018 Influenza Virus Vaccine, Quadrivalent (Cciiv4), Derived From Cell U-Pneum Given 05/30/2017 Pneumococcal,Unspecified U-Flu Given 05/30/2017 Influenza,Unspecified U-Pneum Given 05/29/2017 Pneumococcal,Unspecified U-PneuC Given 02/01/2016 Prevnar 13 Q2037 Given 04/16/2013 Fluvirin Virus Vaccine 65206 Given 04/17/2012 Pneumovax 23 Q2037 Given 04/13/2011 Fluvirin Virus Vaccine 00812 Given 03/24/2010 Influenza Virus Vaccine 07423 Given 03/23/2009 Influenza Virus Vaccine 49282 Given 03/31/2008 Influenza Virus Vaccine 45803 Given 05/01/2006 Pneumovax 23 33921 Given 05/01/2006 Influenza Virus Vaccine 19058 Given 03/12/2003 Influenza Virus Vaccine Vital Signs [...] H/L Range Note Laboratory test finding 07/30/2020 [facility] Historian Research Assistant: [place] [address] [phone] PSA 0.90 ng/mL <4.00 1 1 This assay was performed on the Siemens Dimension EXL using the B- Galactosidase/CPRG methodology and should not be compared interchangeably with other methods. The PSA should not be used alone as a screening test for the presence or absence of malignant disease. Procedures Date Code Description Status 12/24/2020 [id number] Diabetic Retinal Eye Exam Comple shellie 11/03/2020 203544926 Diabetic Retinal Eye Exam Comple shellie 10/26/2020 591039239 Diabetic Retinal Eye Exam Comple shellie 07/30/2020 49904 Office/Outpatient Established Lo w MDM 20-29 Min Completed 02/28/2014 [id number] Colonoscopy Completed 06/09/2003 [id number] Colonoscopy Completed Medical Devices Description No Information Available Encounters Type Date Location Provider Dx Diagnosis Office Visit 07/30/2020 9:30a [facility] 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 12/25/2020 - Boby Siddiqui DO* Z01.810 Encounter for preprocedural cardiovascular examination * I25.10 Atherosclerotic heart disease of [place] coronary artery without angina pectoris * I10 Essential (primary) hypertension * All * New Medication:* Bisoprolol Fumarate 5 mg - 1/2 tab by mouth every day Functional Status Description No Information Available Mental Status Description No Information Available Referrals Description No Information Available
--- OUTSIDE RECORDS SUMMARY | 2021-02-28 20:43 | CCD | Continuity of Care Document ---
Author Author Graeme Jules Organization Unknown Address [address] [facility] [address] [place] [address] Phone [phone] Care Team Providers Care Drywall Installer Name Role Phone Fortino Fajardo MD AUTM [phone] Lucinda Meade MD AUTM [phone] Vickie Jules AUTM [phone] Bismark Elise DO AUTM [phone] Problems Active Problems Provider Date Degenerative joint [...] Day 90tabs Luis E Freedman MD 03/06/2019 [place]-Smoothe/FS Scalp 0.01% Oil apply to scalp leave [...] 30tabs Kendra Grace.O. 11/23/2007 Vitamin C Plus [place] Hips 500mg Chewtabs 1 PO qd Unknown [...] CPT Code Status Date Vaccine Lot # 63269 Given 02/17/2021 Influenza Vaccin e Quadrivalent Preser/Antibiotic Free Im Use [id number] 23926 Given 01/28/2020 Influenza Vaccin e Quadrivalent Preser/Antibiotic Free Im Use 266575 81395 Given 02/19/2019 Influenza Vaccin e Quadrivalent Preser/Antibiotic Free Im Use 980149 55649 Given 08/14/2018 Shingrix Zoster Vaccine (HZV), Recombinant, Subunit, Adjuvanted 34015 Given 07/20/2018 Adacel- Tetanus Diphtheria P ertussis [id number] 20159 Given 02/15/2018 Influenza Virus Vaccine, Quadrivalent (Cciiv4), Derived From Cell U-Pneum Given 05/30/2017 Pneumococcal,Unspecified U-Flu Given 05/30/2017 Influenza,Unspecified U-Pneum Given 05/29/2017 Pneumococcal,Unspecified U-PneuC Given 02/01/2016 Prevnar 13 Q2037 Given 04/16/2013 Fluvirin Virus Vaccine 07648 Given 04/17/2012 Pneumovax 23 Q2037 Given 04/13/2011 Fluvirin Virus Vaccine 49138 Given 03/24/2010 Influenza Virus Vaccine 61134 Given 03/23/2009 Influenza Virus Vaccine 73401 Given 03/31/2008 Influenza Virus Vaccine 03638 Given 05/01/2006 Pneumovax 23 36344 Given 05/01/2006 Influenza Virus Vaccine 39690 Given 03/12/2003 Influenza Virus Vaccine Vital Signs [...] H/L Range Note Complete Blood Count 02/17/2021 [facility] [place] Lab Technician: [place] [address] [phone] WBC 7.0 x10*3/UL 4.1 - 10.9 RBC [...] 2.0 - 7.8 Comprehensive Chem Profile 02/17/2021 [facility], [place] Lab Technician: [place] [address] [phone] Glucose 100 mg/dL High 74 - 99 [...] 60 mL/min >60 2 Lipid Profile 02/17/2021 [facility] , [place] Lab Technician: [place] [address] [phone] Cholesterol 140 mg/dL 131 - 200 Triglycerides [...] LITTLE GFR LEFT ESRD GFR <15 ON CYCLE COUNTER Procedures Date Code Description Status 01/04/2021 [id number] Diabetic Retinal Eye Exam Comple shellie 12/25/2020 07516 Office/Outpatient Established Mo d MDM 30-39 Min Completed 12/25/2020 10875 EKG/Interpretation & Report Comp leted 12/24/2020 [id number] Diabetic Retinal Eye Exam Comple shellie 11/03/2020 [id number] Diabetic Retinal Eye Exam Comple shellie 10/26/2020 [id number] Diabetic Retinal Eye Exam Comple shellie 02/28/2014 [id number] Colonoscopy Completed 06/09/2003 [id number] Colonoscopy Completed Medical Devices Description No Information Available Encounters Type Date Location Provider Dx Diagnosis Office Visit 12/25/2020 9:00a [facility] Chr stephen Freedman DO Z01.810 [...] 12/25/2020 I25.10 Atherosclerotic hear t disease of [place] coronary artery without angina pectoris Boby Freedman DO 12/25/2020 I10 Essential (primary) hypertension Boby Freedman DO 12/25/2020 R00.1 Sinus bradycardia Boby chance DO Plan of Treatment Future Appointment(s):* 08/10/2021 9:00 am - RACIEL Ramirez at [facility] * 08/10/2021 8:40 am - Nurse #2 at [facility] 12/25/2020 - Boby Freedman DO* Z01.810 Encounter for preprocedural cardiovascular examination* Comments:* Low risk for low risk surgery, continue ASA and statin perioperatively. Weaning down on bisoprolol. 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
--- OUTSIDE RECORDS SUMMARY | 2021-02-28 20:43 | CCD | Continuity of Care Document ---
Author Author Graeme Jules Organization Unknown Address [address] [facility] [address] [place] [address] Phone [phone] Care Team Providers Care Operations Program Manager Name Role Phone Fortino Fajardo MD AUTM [phone] Lucinda Meade MD AUTM [phone] Vickie Jules AUTM [phone] Bismark Elise DO AUTM [phone] Problems Active Problems Provider Date Degenerative joint [...] Day 90tabs Luis E Freedman MD 03/06/2019 [place]-Smoothe/FS Scalp 0.01% Oil apply to scalp leave [...] 30tabs Kendra Grace.O. 11/23/2007 Vitamin C Plus [place] Hips 500mg Chewtabs 1 PO qd Unknown [...] CPT Code Status Date Vaccine Lot # 19531 Given 02/17/2021 Influenza Vaccin e Quadrivalent Preser/Antibiotic Free Im Use [id number] 32783 Given 01/28/2020 Influenza Vaccin e Quadrivalent Preser/Antibiotic Free Im Use 964911 18378 Given 02/19/2019 Influenza Vaccin e Quadrivalent Preser/Antibiotic Free Im Use 052434 47649 Given 08/14/2018 Shingrix Zoster Vaccine (HZV), Recombinant, Subunit, Adjuvanted 00274 Given 07/20/2018 Adacel- Tetanus Diphtheria P ertussis [id number] 78997 Given 02/15/2018 Influenza Virus Vaccine, Quadrivalent (Cciiv4), Derived From Cell U-Pneum Given 05/30/2017 Pneumococcal,Unspecified U-Flu Given 05/30/2017 Influenza,Unspecified U-Pneum Given 05/29/2017 Pneumococcal,Unspecified U-PneuC Given 02/01/2016 Prevnar 13 Q2037 Given 04/16/2013 Fluvirin Virus Vaccine 73938 Given 04/17/2012 Pneumovax 23 Q2037 Given 04/13/2011 Fluvirin Virus Vaccine 19707 Given 03/24/2010 Influenza Virus Vaccine 23408 Given 03/23/2009 Influenza Virus Vaccine 28787 Given 03/31/2008 Influenza Virus Vaccine 47666 Given 05/01/2006 Pneumovax 23 96746 Given 05/01/2006 Influenza Virus Vaccine 45842 Given 03/12/2003 Influenza Virus Vaccine Vital Signs [...] H/L Range Note Complete Blood Count 02/17/2021 [facility] Tannery Gummer: [place] [address] [phone] WBC 7.0 x10*3/UL 4.1 - 10.9 RBC [...] 2.0 - 7.8 Comprehensive Chem Profile 02/17/2021 [facility], [place] Gummer: [place] [address] [phone] Glucose 100 mg/dL High 74 - 99 [...] 60 mL/min >60 2 Lipid Profile 02/17/2021 [facility] , [place] Gummer: [place] [address] [phone] Cholesterol 140 mg/dL 131 - 200 Triglycerides [...] LITTLE GFR LEFT ESRD 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 <15 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 Procedures Date Code Description Status 01/04/2021 [id number] Diabetic Retinal Eye Exam Comple shellie 12/25/2020 09967 Office/Outpatient Established Mo d MDM 30-39 Min Completed 12/25/2020 19980 EKG/Interpretation & Report Comp leted 12/24/2020 [id number] Diabetic Retinal Eye Exam Comple shellie 11/03/2020 637693545 Diabetic Retinal Eye Exam Comple shellie 10/26/2020 [id number] Diabetic Retinal Eye Exam Comple shellie 02/28/2014 [id number] Colonoscopy Completed 06/09/2003 [id number] Colonoscopy Completed Medical Devices Description No Information Available Encounters Type Date Location Provider Dx Diagnosis Office Visit 12/25/2020 9:00a [facility] Chr stephen Freedman DO Z01.810 [...] 12/25/2020 I25.10 Atherosclerotic hear t disease of [place] coronary artery without angina pectoris Boby Freedman DO 12/25/2020 I10 Essential (primary) hypertension Boby Freedman DO 12/25/2020 R00.1 Sinus bradycardia Boby chance DO Plan of Treatment Future Appointment(s):* 08/10/2021 9:00 am - RACIEL Ramirez at [facility] * 08/10/2021 8:40 am - Nurse #2 at [facility] 12/25/2020 - Boby Freedman DO* Z01.810 Encounter for preprocedural cardiovascular examination* Comments:* Low risk for low risk surgery, continue ASA and statin perioperatively. Weaning down on bisoprolol. 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
--- OUTSIDE RECORDS SUMMARY | 2021-02-28 20:43 | CCD | Continuity of Care Document ---
Author Author Graeme Jules Organization Unknown Address [address] [facility] [address] [place] [address] Phone [phone] Care Team Providers Care Cement Side Laster Name Role Phone Fortino Fajardo MD AUTM [phone] Lucinda Meade MD AUTM [phone] Vickie Jules AUTM [phone] Bismark Elise DO AUTM [phone] Problems Active Problems Provider Date Degenerative joint [...] Day 90tabs Luis E Freedman MD 03/06/2019 [place]-Smoothe/FS Scalp 0.01% Oil apply to scalp leave [...] 30tabs Kendra Grace.O. 11/23/2007 Vitamin C Plus [place] Hips 500mg Chewtabs 1 PO qd Unknown [...] CPT Code Status Date Vaccine Lot # 72802 Given 02/17/2021 Influenza Vaccin e Quadrivalent Preser/Antibiotic Free Im Use [id number] 37666 Given 01/28/2020 Influenza Vaccin e Quadrivalent Preser/Antibiotic Free Im Use 149907 66162 Given 02/19/2019 Influenza Vaccin e Quadrivalent Preser/Antibiotic Free Im Use 720298 59572 Given 08/14/2018 Shingrix Zoster Vaccine (HZV), Recombinant, Subunit, Adjuvanted 74693 Given 07/20/2018 Adacel- Tetanus Diphtheria P ertussis [id number] 31523 Given 02/15/2018 Influenza Virus Vaccine, Quadrivalent (Cciiv4), Derived From Cell U-Pneum Given 05/30/2017 Pneumococcal,Unspecified U-Flu Given 05/30/2017 Influenza,Unspecified U-Pneum Given 05/29/2017 Pneumococcal,Unspecified U-PneuC Given 02/01/2016 Prevnar 13 Q2037 Given 04/16/2013 Fluvirin Virus Vaccine 76913 Given 04/17/2012 Pneumovax 23 Q2037 Given 04/13/2011 Fluvirin Virus Vaccine 46218 Given 03/24/2010 Influenza Virus Vaccine 73254 Given 03/23/2009 Influenza Virus Vaccine 28229 Given 03/31/2008 Influenza Virus Vaccine 80938 Given 05/01/2006 Pneumovax 23 35102 Given 05/01/2006 Influenza Virus Vaccine 65342 Given 03/12/2003 Influenza Virus Vaccine Vital Signs [...] H/L Range Note Complete Blood Count 02/17/2021 [facility] Per Diem: [place] [address] [phone] WBC 7.0 x10*3/UL 4.1 - 10.9 RBC [...] 2.0 - 7.8 Comprehensive Chem Profile 02/17/2021 [facility], [place]: [place] [address] [phone] Glucose 100 mg/dL High 74 - 99 [...] 60 mL/min >60 2 Lipid Profile 02/17/2021 [facility] , [place]: [place] [address] [phone] Cholesterol 140 mg/dL 131 - 200 Triglycerides [...] LITTLE GFR LEFT ESRD 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 <15 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 Procedures Date Code Description Status 01/04/2021 [id number] Diabetic Retinal Eye Exam Comple shellie 12/25/2020 64121 Office/Outpatient Established Mo d MDM 30-39 Min Completed 12/25/2020 69897 EKG/Interpretation & Report Comp leted 12/24/2020 [id number] Diabetic Retinal Eye Exam Comple shellie 11/03/2020 391904386 Diabetic Retinal Eye Exam Comple shellie 10/26/2020 [id number] Diabetic Retinal Eye Exam Comple shellie 02/28/2014 [id number] Colonoscopy Completed 06/09/2003 [id number] Colonoscopy Completed Medical Devices Description No Information Available Encounters Type Date Location Provider Dx Diagnosis Office Visit 12/25/2020 9:00a [facility] Chr stephen Freedman, Z01.810 Encounter for preprocedural cardiovascular examination H27.122 Anterior dislocation of lens , left eye I25.10 Athscl heart disease of [place] coronary artery w/o ang pctrs I10 Essential (primary) hyperten golden R00.1 Bradycardia, unspecified Assessments Date Code Description Provider 02/17/2021 I25.10 Atherosclerotic hear t disease of [place] coronary artery without angina pectoris Vickie Jules, RACIEL 02/17/2021 I10 Essential (primary) hypertension Vickie Jules, ANP 02/17/2021 N40.0 Benign prostatic hyperplasia wit hout lower urinary tract sym Vickie Jules, ANP 02/17/2021 E78.00 Pure hypercholesterolemia, unspe cified Vickie Jules, RACIEL 02/17/2021 L57.0 Actinic keratosis Vickie Bianchi r, ANP 12/25/2020 Z01.810 Encounter for preprocedural card iovascular examination Boby Freedman, 12/25/2020 H27.122 Anterior dislocation of lens, le ft eye Boby Freedman, DO 12/25/2020 I25.10 Atherosclerotic hear t disease of [place] coronary artery without angina pectoris Boby Freedman, 12/25/2020 I10 Essential (primary) hypertension Boby Freedman, DO 12/25/2020 R00.1 Sinus bradycardia Boby chance DO Plan of Treatment Future Appointment(s):* 08/10/2021 9:00 am - RACIEL Ramirez at [facility] * 08/10/2021 8:40 am - [facility] 02/17/2021 - RACIEL Ramirez* I25.10 Atherosclerotic heart disease of [place] coronary artery without angina pectoris * I10 Essential (primary) hypertension * N40.0 Benign prostatic hyperplasia without lower urinary tract sym * E78.00 Pure hypercholesterolemia, unspecified * L57.0 Actinic keratosis Functional Status Description No Information Available Mental Status Description No Information Available Referrals Description No Information Available
--- OUTSIDE RECORDS SUMMARY | 2021-02-28 20:43 | CCD | Continuity of Care Document ---
Author Author Graeme Jules Organization Unknown Address [address] [facility] [address] [place] [address] Phone [phone] Care Team Providers Care Operations And Maintenance Manager Name Role Phone Fortino Fajardo MD AUTM [phone] Lucinda Meade MD AUTM [phone] Vickie Jules AUTM [phone] Bismark Elise DO AUTM [phone] Problems Active Problems Provider Date Degenerative joint [...] Day 90tabs Luis E Freedman MD 03/06/2019 [place]-Smoothe/FS Scalp 0.01% Oil apply to scalp leave [...] 30tabs Kendra Grace.O. 11/23/2007 Vitamin C Plus [place] Hips 500mg Chewtabs 1 PO qd Unknown [...] CPT Code Status Date Vaccine Lot # 76007 Given 02/17/2021 Influenza Vaccin e Quadrivalent Preser/Antibiotic Free Im Use 298653 34199 Given 01/28/2020 Influenza Vaccin e Quadrivalent Preser/Antibiotic Free Im Use 820945 40126 Given 02/19/2019 Influenza Vaccin e Quadrivalent Preser/Antibiotic Free Im Use 540116 96055 Given 08/14/2018 Shingrix Zoster Vaccine (HZV), Recombinant, Subunit, Adjuvanted 40745 Given 07/20/2018 Adacel- Tetanus Diphtheria P ertussis [id number] 26227 Given 02/15/2018 Influenza Virus Vaccine, Quadrivalent (Cciiv4), Derived From Cell U-Pneum Given 05/30/2017 Pneumococcal,Unspecified U-Flu Given 05/30/2017 Influenza,Unspecified U-Pneum Given 05/29/2017 Pneumococcal,Unspecified U-PneuC Given 02/01/2016 Prevnar 13 Q2037 Given 04/16/2013 Fluvirin Virus Vaccine 26870 Given 04/17/2012 Pneumovax 23 Q2037 Given 04/13/2011 Fluvirin Virus Vaccine 39743 Given 03/24/2010 Influenza Virus Vaccine 14407 Given 03/23/2009 Influenza Virus Vaccine 63909 Given 03/31/2008 Influenza Virus Vaccine 13523 Given 05/01/2006 Pneumovax 23 03545 Given 05/01/2006 Influenza Virus Vaccine 59010 Given 03/12/2003 Influenza Virus Vaccine Vital Signs [...] H/L Range Note Complete Blood Count 02/17/2021 [facility] Traffic Workforce Representative: [place] [address] [phone] WBC 7.0 x10*3/UL 4.1 - 10.9 RBC [...] 2.0 - 7.8 Comprehensive Chem Profile 02/17/2021 [facility], Traffic Workforce Representative: [place] [address] [phone] Glucose 100 mg/dL High 74 - 99 [...] 60 mL/min >60 2 Lipid Profile 02/17/2021 [facility] , Traffic Workforce Representative: [place] [address] [phone] Cholesterol 140 mg/dL 131 - 200 Triglycerides [...] LITTLE GFR LEFT 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 <15 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 Date Code Description Status 01/04/2021 [id number] Diabetic Retinal Eye Exam Comple shellie 12/25/2020 92651 Office/Outpatient Established Mo d MDM 30-39 Min Completed 12/25/2020 15515 EKG/Interpretation & Report Comp leted 12/24/2020 [id number] Diabetic Retinal Eye Exam Comple shellie 11/03/2020 [id number] Diabetic Retinal Eye Exam Comple shellie 10/26/2020 034503959 Diabetic Retinal Eye Exam Comple shellie 02/28/2014 [id number] Colonoscopy Completed 06/09/2003 [id number] Colonoscopy Completed Medical Devices Description No Information Available Encounters Type Date Location Provider Dx Diagnosis Office Visit 12/25/2020 9:00a [facility] Chr stephen Freedman DO Z01.810 [...] 12/25/2020 I25.10 Atherosclerotic hear t disease of [place] coronary artery without angina pectoris Boby Freedman DO 12/25/2020 I10 Essential (primary) hypertension Boby Freedman DO 12/25/2020 R00.1 Sinus bradycardia Boby chance DO Plan of Treatment Future Appointment(s):* 08/10/2021 9:00 am - RACIEL Ramirez at [facility] * 08/10/2021 8:40 am - Nurse #2 at [facility] 12/25/2020 - Boby Freedman DO* Z01.810 Encounter for preprocedural cardiovascular examination* Comments:* Low risk for low risk surgery, continue ASA and statin perioperatively. Weaning down on bisoprolol. 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
--- OUTSIDE RECORDS SUMMARY | 2021-02-28 20:44 | CCD ---
Author Author [facility] Organization [facility] Address Unknown Phone Unavailable Care Team Providers Care Gate Operator Name Role Phone Feola, T Cecily PA Unavailable Unavailable Feola, T Cecily PA Unavailable Unavailable Feola, T Cecily PA Unavailable Unavailable Feola, T Cecily PA Unavailable Unavailable Feola, T Cecily PA Unavailable Unavailable Feola, T Cecily PA Unavailable Unavailable Feola, T Cecily PA Unavailable Unavailable Feola, T Cecily PA Unavailable Unavailable Feola, T Cecily PA Unavailable Unavailable Feola, T Cecily PA Unavailable Unavailable Feola, T Cecily PA Unavailable Unavailable Feola, T Cecily PA Unavailable Unavailable Feola, T Cecily PA Unavailable Unavailable Feola, T Cecily PA Unavailable Unavailable Feola, T Cecily PA Unavailable Unavailable Feola, T Cecily PA Unavailable Unavailable Feola, T Cecily PA Unavailable Unavailable Feola, T Cecily PA Unavailable Unavailable Feola, T Cecily PA Unavailable Unavailable Feola, T Cecily PA Unavailable Unavailable Feola, T Cecily PA Unavailable Unavailable Feola, T Cecily PA Unavailable Unavailable Feola, T Cecily PA Unavailable Unavailable Feola, T Cecily PA Unavailable Unavailable Feola, T Cecily PA Unavailable Unavailable Feola, T Cecily PA Unavailable Unavailable Feola, T Cecily PA Unavailable Unavailable Feola, T Cecily PA Unavailable Unavailable Feola, T Cecily PA Unavailable Unavailable Feola, T Cecily PA Unavailable Unavailable Feola, T Cecily PA Unavailable Unavailable Feola, T Cecily PA Unavailable Unavailable Feola, T Cecily PA Unavailable Unavailable Feola, T Cecily PA Unavailable Unavailable Feola, T Cecily PA Unavailable Unavailable Feola, T Cecily PA Unavailable Unavailable Feola, T Cecily PA Unavailable Unavailable Feola, T Cecily PA Unavailable Unavailable Feola, T Cecily PA Unavailable Unavailable Feola, T Cecily PA Unavailable Unavailable Feola, T Cecily PA Unavailable Unavailable PICKERAL JR, J RAN PA-C Unavailable Unavailable PICKERAL JR, J RAN PA-C Unavailable Unavailable PICKERAL JR, J RAN PA-C Unavailable Unavailable PICKERAL JR, J RAN PA-C Unavailable Unavailable PICKERAL JR, J RAN PA-C Unavailable Unavailable PICKERAL JR, J RAN PA-C Unavailable Unavailable PICKERAL JR, J RAN PA-C Unavailable Unavailable PICKERAL JR, J RAN PA-C Unavailable Unavailable PICKERAL JR, J RAN PA-C Unavailable Unavailable PICKERAL JR, J RAN PA-C Unavailable Unavailable PICKERAL JR, J RAN PA-C Unavailable Unavailable PICKERAL JR, J RAN PA-C Unavailable Unavailable PICKERAL JR, J RAN PA-C Unavailable Unavailable PICKERAL JR, J RAN PA-C Unavailable Unavailable PICKERAL JR, J RAN PA-C Unavailable Unavailable PICKERAL JR, J RAN PA-C Unavailable Unavailable PICKERAL JR, J RAN PA-C Unavailable Unavailable PICKERAL JR, J RAN PA-C Unavailable Unavailable PICKERAL JR, J RAN PA-C Unavailable Unavailable PICKERAL JR, J RAN PA-C Unavailable Unavailable PICKERAL JR, J RAN PA-C Unavailable Unavailable PICKERAL JR, J RAN PA-C Unavailable Unavailable PICKERAL JR, J RAN PA-C Unavailable Unavailable PICKERAL JR, J RAN PA-C Unavailable Unavailable PICKERAL JR, J RAN PA-C Unavailable Unavailable PICKERAL JR, J RAN PA-C Unavailable Unavailable PICKERAL JR, J RAN PA-C Unavailable Unavailable Ledy Freire MD Unavailable Unavailable Ledy Freire MD Unavailable Unavailable Ledy Freire MD Unavailable Unavailable Ledy Freire MD Unavailable Unavailable Ledy Freire MD Unavailable Unavailable Ledy Freire MD Unavailable Unavailable Ledy Freire MD Unavailable Unavailable Ledy Freire MD Unavailable Unavailable Oellers, Ledy Ray MD Unavailable Unavailable Oellers, Ledy Ray MD Unavailable Unavailable Oellers, Ledy Ray MD Unavailable Unavailable Oellers, Ledy Ray MD Unavailable Unavailable Oellers, Ledy Ray MD Unavailable Unavailable Oellers, Ledy Ray MD Unavailable Unavailable Oellers, Ledy Ray MD Unavailable Unavailable Oellers, Ledy Ray MD Unavailable Unavailable Oellers, Ledy Ray MD Unavailable Unavailable Oellers, Ledy Ray MD Unavailable Unavailable Oellers, Ledy Ray MD Unavailable Unavailable Oellers, Ledy Ray MD Unavailable Unavailable Oellers, Ledy Ray MD Unavailable Unavailable Oellers, Ledy Ray MD Unavailable Unavailable Oellers, Ledy Ray MD Unavailable Unavailable Oellers, Ledy Ray MD Unavailable Unavailable Oellers, Ledy Ray MD Unavailable Unavailable Oellers, Ledy Ray MD Unavailable Unavailable Oellers, Ledy Ray MD Unavailable Unavailable Oellers, Ledy Ray MD Unavailable Unavailable Oellers, Ledy Ray MD Unavailable Unavailable Oellers, Ledy Ray MD Unavailable Unavailable Oellers, Ledy Ray MD Unavailable Unavailable Oellers, Ledy Ray MD Unavailable Unavailable Oellers, Ledy Ray MD Unavailable Unavailable Oellers, Ledy Ray MD Unavailable Unavailable Oellers, Ledy Ray MD Unavailable Unavailable Oellers, Ledy Ray MD Unavailable Unavailable Oellers, Ledy Ray MD Unavailable Unavailable Oellers, Ledy Ray MD Unavailable Unavailable Oellers, Ledy Ray MD Unavailable Unavailable Oellers, Ledy Ray MD Unavailable Unavailable Oellers, Ledy Ray MD Unavailable Unavailable Oellers, Ledy Ray MD Unavailable Unavailable Oellers, Ledy Ray MD Unavailable Unavailable Oellers, Ledy Ray MD Unavailable Unavailable Oellers, Ledy Ray MD Unavailable Unavailable Oellers, Ledy Ray MD Unavailable Unavailable Oellers, Ledy Ray MD Unavailable Unavailable Oellers, Ledy Ray MD Unavailable Unavailable Oellers, Ledy Ray MD Unavailable Unavailable Oellers, Ledy Ray MD Unavailable Unavailable Oellers, Ledy Ray MD Unavailable Unavailable Oellers, Ledy Ray MD Unavailable Unavailable BECCA, J Vickie ANP Unavailable Unavailable BECCA, J Vickie ANP Unavailable Unavailable BECCA, J Vickie ANP Unavailable Unavailable BECCA, J Vickie ANP Unavailable Unavailable BECCA, J Vickie ANP Unavailable Unavailable BECCA, J Vickie ANP Unavailable Unavailable BECCA, J Vickie ANP Unavailable Unavailable BECCA, J Vickie ANP Unavailable Unavailable BECCA, J Vickie ANP Unavailable Unavailable BECCA, J Vickie ANP Unavailable Unavailable BECCA, J Vickie ANP Unavailable Unavailable BECCA, J Vickie ANP Unavailable Unavailable BECCA, J Vickie ANP Unavailable Unavailable BECCA, J Vickie ANP Unavailable Unavailable BECCA, J Vickie ANP Unavailable Unavailable BECCA, J Vickie ANP Unavailable Unavailable BECCA, J Vickie ANP Unavailable Unavailable BECCA, J Vickie ANP Unavailable Unavailable BECCA, J Vickie ANP Unavailable Unavailable BECCA, J Vickie ANP Unavailable Unavailable BECCA, J Vickie ANP Unavailable Unavailable BECCA, J Vickie ANP Unavailable Unavailable BECCA, J Vickie ANP Unavailable Unavailable BECCA, J Vickie ANP Unavailable Unavailable BECCA, J Vickie ANP Unavailable Unavailable BECCA, J Vickie ANP Unavailable Unavailable BECCA, J Vickie ANP Unavailable Unavailable BECCA, J Vickie ANP Unavailable Unavailable BECCA, J Vickie ANP Unavailable Unavailable BECCA, J Vickie ANP Unavailable Unavailable BECCA, J Vickie ANP Unavailable Unavailable BECCA, J Vickie ANP Unavailable Unavailable BECCA, J Vickie ANP Unavailable Unavailable BECCA, J Vickie ANP Unavailable Unavailable BECCA, J Vickie ANP Unavailable Unavailable BECCA, J Vickie ANP Unavailable Unavailable BECCA, J Vickie ANP Unavailable Unavailable BECCA, J Vickie ANP Unavailable Unavailable BECCA, J Vickie ANP Unavailable Unavailable BECCA, J Vickie ANP Unavailable Unavailable BECCA, J Vickie ANP Unavailable Unavailable BECCA, J Vickie ANP Unavailable Unavailable BECCA, J Vickie ANP Unavailable Unavailable BECCA, J Vickie ANP Unavailable Unavailable BECCA, J Vickie ANP Unavailable Unavailable BECCA, J Vickie ANP Unavailable Unavailable BECCA, J Vickie ANP Unavailable Unavailable BECCA, J Vickie ANP Unavailable Unavailable BECCA, J Vickie ANP Unavailable Unavailable BECCA, J Vickie ANP Unavailable Unavailable BECCA, J Vickie ANP Unavailable Unavailable BECCA, J Vickie ANP Unavailable Unavailable BECCA, J Vickie ANP Unavailable Unavailable BECCA, J Vickie ANP Unavailable Unavailable BECCA, J Vickie ANP Unavailable Unavailable BECCA, J Vickie ANP Unavailable Unavailable BECCA, J Vickie ANP Unavailable Unavailable BECCA, J Vickie ANP Unavailable Unavailable BECCA, J Vickie ANP Unavailable Unavailable BECCA, J Vickie ANP Unavailable Unavailable BECCA, J Vickie ANP Unavailable Unavailable BECCA, J Vickie ANP Unavailable Unavailable BECCA, J Vickie ANP Unavailable Unavailable BECCA, J Vickie ANP Unavailable Unavailable Jasmina, Christopher DO Unavailable Unavailable Jasmina, Christopher DO Unavailable Unavailable Ayr, Christopher DO Unavailable Unavailable Jasmina, Christopher DO Unavailable Unavailable Ayr, Christopher DO Unavailable Unavailable Ayr, Christopher DO Unavailable Unavailable Ayr, Christopher DO Unavailable Unavailable Jasmina, Christopher DO Unavailable Unavailable MUNIR, A JESSICA DO Unavailable Unavailable MUNIR, A JESSICA DO Unavailable Unavailable MUNIR, A JESSICA DO Unavailable Unavailable MUNIR, A JESSICA DO Unavailable Unavailable MUNIR, A JESSICA DO Unavailable Unavailable MUNIR, A JESSICA DO Unavailable Unavailable MUNIR, A JESSICA DO Unavailable Unavailable MUNIR, A JESSICA DO Unavailable Unavailable MUNIR, A JESSICA DO Unavailable Unavailable MUNIR, A JESSICA DO Unavailable Unavailable MUNIR, A JESSICA DO Unavailable Unavailable MUNIR, A JESSICA DO Unavailable Unavailable MUNIR, A JESSICA DO Unavailable Unavailable MUNIR, A JESSICA DO Unavailable Unavailable MUNIR, A JESSICA DO Unavailable Unavailable MUNIR, A JESSICA DO Unavailable Unavailable MUNIR, A JESSICA DO Unavailable Unavailable MUNIR, A JESSICA DO Unavailable Unavailable MUNIR, A JESSICA DO Unavailable Unavailable MUNIR, A JESSICA DO Unavailable Unavailable MUNIR, A JESSICA DO Unavailable Unavailable MUNIR, A JESSICA DO Unavailable Unavailable Re-disclosure Warning The records that you are about to access may contain information from federally-assisted alcohol or drug abuse programs. If such information is present, then the following federally mandated warning applies: This information has been disclosed to you from records protected by federal confidentiality rules (42 CFR part 2). The federal rules prohibit you from making any further disclosure of this information unless further disclosure is expressly permitted by the written consent of the person to whom it pertains or as otherwise permitted by 42 CFR part 2. A general authorization for the release of medical or other information is NOT sufficient for this purpose. The Federal rules restrict any use of the information to criminally investigate or prosecute any alcohol or drug abuse patient.The records that you are about to access may contain highly sensitive health information, the redisclosure of which is protected by Article 27-F of the [place] State Public Health law. If you continue you may have access to information: Regarding HIV / AIDS; Provided by facilities licensed or operated by the [facility] Mental [facility]; or Provided by the [facility] for People With Developmental Disabilities. If such information is present, then the following [facility] mandated warning applies: This information has been disclosed to you from confidential records which are protected by state law. State law prohibits you from making any further disclosure of this information without the specific written consent of the person to whom it pertains, or as otherwise permitted by law. Any unauthorized further disclosure in violation of state law may result in a fine or residential sentence or both. A general authorization for the release of medical or other information is NOT sufficient authorization for further disc losure. Allergies and Adverse Reactions Type Description Substance Reaction Status Data Source(s ) Allergy to substance No Known Allergies No known allergies (situation ) [facility] (Samuel Velazquez MD [facility]) Allergy to substance No Known Allergies No known allergies (situation ) [facility]LE (Samuel Velazquez MD [facility]) Allergy to substance No Known Allergies No known allergies (situation ) MICHELLE (Samuel Velazquez MD [facility]) Allergy to substance No Known Allergies No known allergies (situation ) [facility]HELLE (Samuel Velazquez MD [facility]) Allergy to substance No Known Allergies No known allergies (situation ) [facility]HELLE (Samuel Velazquez MD [facility]) Allergy to substance No Known Allergies No known allergies (situation ) [facility] (Samuel Velazquez MD [facility]) Family History Family Member Name Family Member Gender Family Member Status Date o f Status Description Data Source(s) Unknown Male Problem [facility] ([facility]) Encounters Encounter Providers Location Date Indications Data Source(s ) Outpatient Attender: Vickie Álvarez 10/2020 02:20:00 PM EDT [facility] ([facility] ) ( in Healthcare facility) Attender: Cory Freire MD 12/29/2020 10:52:00 AM EDT - 12/29/2020 07:36:[facility] Cory Freire MDAdmitter: Cory trujillo MD 12/29/2020 10:52:00 AM EDT - 12/29/2020 07:36:00 PM EDT DISLOCATED INTRAOCULAR LENS LEFT EYE, T85.29XA [facility] DISLOCATED INTRAOCULAR LENS LEFT EYE, T8 5.29XA Patient discharged. Outpatient Attender: Boby Wattg Jasmina Metzger anayeli 12/25/2020 09:00:00 AM EDT [facility] ([facility] ) Outpatient Attender: Cecily MORA 021 01:08:41 PM EDT - 12/24/2020 02:32:07 PM EDT [facility] ([facility] ) <td ID="encounterTypeDescriptionID0">TRI AGE NON URGENT</td><td>Jessica Elise DO</td><td>Samuel Joyner MD [facility]</td><td>12/24/2020</td><td>6:49AM</td><td>7:45AM</td><td><content ID="encounterDiagnosisID0-0">Pseudophakia</content>, <content ID="encounterDiagnosisID0-1">Subluxation of Lens</content></td>Outpatient Attender: JESSICA Zarco MD [facility] 12/24/2020 06:49:00 AM EDT - 12/24/2020 07:45:00 AM EDT Subluxation of LensPseudophakia MICHELLE (Samuel Velazquez MD [facility]) Subluxation of Lens Pseudophakia <td ID="encounterTypeDescriptionID1">3 - 4 Week Follow-Up</td><td>Jessica Elise DO</td><td>Samuel Joyner MD [facility]</td><td>12/07/2020</td><td>2:46PM</td><td>3:36PM</td><td><content ID="encounterDiagnosisID1-0">Pseudophakia</content></td>Outpatient Attender: JESSICA Zarco MD [facility] 12/07/2020 02:46:00 PM EDT - 12/07/2020 03:36:00 PM EDT PseudophakiaPseudophakia MICHELLE (Samuel ricks MD [facility]) Pseudophakia Pseudophakia <td ID="encounterTypeDescriptionID2">Rx Refills/Changes</td><td>Jessica Elise DO</td><td></td><td>11/23/2020</td><td>11/13/2020 9:09AM</td><td>11/13/2020 11:59PM</td><td></td>Outpatient Attender: JESSICA ELISE DO 11/13/2020 09:09:00 AM EDT - 11/13/2020 11:59:00 PM EDT [facility]HELLE (Samuel Velazquez MD [facility]) <td ID="encounterTypeDescriptionID3">[address] [place]</td><td>Jessica Elise DO</td><td>Samuel Joyner MD [facility]</td><td>11/13/2020</td><td>7:24AM</td><td>8:23AM</td><td></td>Outpatient Attender: JESSICA Zarco MD [facility] 11/13/2020 07:24:00 AM EDT - 11/13/2020 08:23:00 AM EDT [facility]HELLE (Samuel Velazquez MD [facility]) <td ID="encounterTypeDescriptionID4">[address] D [place] [address] OP</td><td>Jessica Elise DO</td><td>Samuel Joyner MD [facility]</td><td>11/04/2020</td><td>8:00AM</td><td>9:24AM</td><td><content ID="encounterDiagnosisID4-0">Pseudophakia</content>, <content ID="encounterDiagnosisID4-1">Corneal Edema</content></td>Outpatient Attender: JESSICA Zarco MD [facility] 11/04/2020 08:00:00 AM EDT - 11/04/2020 09:24:00 AM EDT Corneal EdemaPseudophakiaCorneal EdemaPseudophakiaCorneal EdemaPseudophakiaCorneal EdemaPseudophakia MICHELLE (Samuel Velazquez MD [facility]) Corneal Edema Pseudophakia Corneal Edema Pseudophakia Corneal Edema Pseudophakia Corneal Edema Pseudophakia <td ID="encounterTypeDescriptionID5">Ext racapsular cataract removal w/IOL implant</td><td>Jessica Elise DO</td><td>[facility]</td><td>11/02/2020</td><td>6:39AM</td><td>6:39AM</td><td></td>Outpatient Attender: JESSICA ELISE DO [facility] 11/02/2020 06:39:00 AM EDT - 11/02/2020 06:39:00 AM EDT MICHELLE (Samuel Velazquez MD [facility]) Outpatient<td ID="encounterTypeDescripti onID6">NEW PATIENT WITH REFERRAL</td><td>Jesisca Elise DO</td><td>Samuel Joyner MD [facility]</td><td>10/21/2020</td><td>8:17AM</td><td>9:43AM</td><td><content ID="encounterDiagnosisID6-0">Dry Eye Syndrome</content>, <content ID="encounterDiagnosisID6-1">Cataract Senile Nuclear</content>, <content ID="encounterDiagnosisID6-2">Vitreous Disorders Degeneration</content></td> Attender: JESSICA Zarco MD [facility] 10/21/2020 08:17:00 AM EDT - 10/21/2020 09:43:00 AM EDT Vitreous Disorders DegenerationCataract Senile NuclearDry Eye SyndromeVitreous Disorders DegenerationCataract Senile NuclearDry Eye SyndromeVitreous Disorders DegenerationCataract Senile NuclearDry Eye SyndromeVitreous Disorders DegenerationCataract Senile NuclearDry Eye SyndromeVitreous Disorders DegenerationCataract Senile NuclearDry Eye SyndromeVitreous Disorders DegenerationCataract Senile NuclearDry Eye Syndrome MICHELLE (Samuel Velazquez MD [facility]) 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 Nuclear Dry Eye Syndrome Outpatient Attender: Vickie CROOKSCASIMIRO Wattg Henri 09:30:00 AM EDT [facility] ([facility] ) Outpatient Attender: RAN Wattg Henri 1 06/23/2019 09:40:00 AM EST [facility] ([facility] ) Outpatient Attender: Vickie Álvarez 10:45:00 AM EDT [facility] ([facility] ) Immunizations Vaccine Date Status Description Data Source(s) Influenza, injectable, MDCK, preservative free, william valent 02/17/2021 02:38:00 PM EDT completed [facility] ([facility]) COVID-19 VACC, MRNA(PFIZER)/PF 12/10/2020 12:00:00 AM EDT completed [facility] COVID-19 VACCINE Pfizer 12/10/2020 12:00:00 AM EDT completed [facility] Vaccine Series Complete: YESThis Data wa s Submitted to [facility] [employer]. COVID-19 VACCINE Pfizer 11/19/2020 12:00:00 AM EDT completed [facility] Vaccine Series Complete: NOThis Data was Submitted to [facility] [employer]. COVID-19 VACC, MRNA(PFIZER)/PF 11/19/2020 12:00:00 AM EDT completed [facility] Influenza, injectable, MDCK, preservative free, william valent 01/28/2020 10:50:00 AM EDT completed [facility] ([facility]) Medications Medication Brand Name Start Date Product Form Dose Route Admi nistrative Instructions Pharmacy Instructions Status Indications Reaction Description Data Source(s) Administration Of Flu Vaccine 02/17/2021 12:00:00 AM EDT completed [facility] ([facility]) Medication administered onsite atorvastatin 40 MG Oral Tablet ATORVASTATIN CALCIUM 02/05/2021 1 2:00:00 AM EDT tablet 90 TAKE ONE TABLET BY MOUTH EVERY D AY TAKE ONE TABLET BY MOUTH EVERY DAY SOLD: 02/09/2021 [facility] Finasteride 5 MG Oral Tablet FINASTERIDE 02/05/2021 12:00:00 AM EDT ta blet 90 TAKE ONE TABLET BY MOUTH EVERY DAY TAKE ONE TABLET BY MOUTH EVERY DAY SOLD: 02/09/2021 [facility] 5 mg 02/05/2021 12:00:00 AM EDT tablet 90 TAKE ONE TABLET BY MOUTH EVERY DAY TAKE ONE TABLET BY MOUTH EVERY DAY SOLD: 02/09/2021 [facility] 1 % 12/28/2020 12:00:00 AM EDT drops,suspension 5 INSTILL 1 DROP INTO LEFY EYE FOUR TIMES A DAY INSTILL 1 DROP INTO LEFY EYE FOUR TIMES A DAY SOLD: 12/28/2020 [facility] 0.3 % 12/28/2020 12:00:00 AM EDT drops 5 INSTILL 1 DROP INTO LEFT EYE FOUR TIMES A DAY INSTILL 1 DROP INTO LEFT EYE FOUR TIMES A DAY SOLD: 12/28/2020 [facility] 1 % 12/28/2020 12:00:00 AM EDT drops,suspension 5 INSTILL 1 DROP INTO LEFY EYE FOUR TIMES A DAY INSTILL 1 DROP INTO LEFY EYE FOUR TIMES A DAY SOLD: 02/09/2021 [facility] 0.3 % 12/28/2020 12:00:00 AM EDT drops 5 INSTILL 1 DROP INTO LEFT EYE FOUR TIMES A DAY INSTILL 1 DROP INTO LEFT EYE FOUR TIMES A DAY SOLD: 02/09/2021 [facility] Bisoprolol Fumarate 5 MG Oral Tablet Bisoprolol Fumarate 12:00:00 AM EDT active [facility] ([facility]) Inveltys 1% Ophthalmic Suspension Inveltys 1% Ophthalmic Marisol pension 11/23/2020 12:00:00 AM EDT aborted loteprednol etabonate 10 MG/ML Ophthalmic Suspension [Inveltys] MICHELLE (Samuel Velazquez MD [facility]) BromSite 0.075% Ophthalmic Solution BromSite 0.075% Ophthalm ic Solution 11/23/2020 12:00:00 AM EDT aborted bromfenac 0.75 MG/ML Ophthalmic Solution [Bromsite] MICHELLE (Samuel Velazquez MD [facility]) 0.075 % 10/21/2020 12:00:00 AM EDT drops 5 3 DAYS PRIOR TO SURGERY, START 1 DROP TWICE A DAY IN LEFT EYE 3 DAYS PRIOR TO SURGERY, START 1 DROP TW ICE A DAY IN LEFT EYE SOLD: 11/09/2020 [facility] Inveltys 1% Ophthalmic Suspension Inveltys 1% Ophthalmic Marisol pension 10/21/2020 12:00:00 AM EDT aborted loteprednol etabonate 10 MG/ML Ophthalmic Suspension [Inveltys] MICHELLE (Samuel Velazquez MD [facility]) moxifloxacin 5 MG/ML Ophthalmic Solution Moxifloxacin HCl 0.5% Ophthalmic Solution Moxifloxacin HCl 0.5% Ophthalmic Solution 10/21/2020 12:00:00 AM EDT aborted moxifloxacin 5 MG/ML Oph thalmic Solution [facility]HELLE (Samuel Velazquez MD [facility]) 0.075 % 10/21/2020 12:00:00 AM EDT drops 5 3 DAYS PRIOR TO SURGERY, START 1 DROP TWICE A DAY IN LEFT EYE 3 DAYS PRIOR TO SURGERY, START 1 DROP TW ICE A DAY IN LEFT EYE SOLD: 10/21/2020 [facility] moxifloxacin 5 MG/ML Ophthalmic Solution 0.5 % MOXIFLOXACIN HCL 10/21/2020 12:00:00 AM EDT drops 3 3 DAYS PRIOR TO SURGERY, START 1 DROP IN LEFT EYE FOUR TIMES A DAY 3 DAYS PRIOR TO SURGERY, START 1 DROP IN LEFT EYE FOUR TIMES A DAY SOLD: 10/21/2020 [facility] 1 % 10/21/2020 12:00:00 AM EDT drops,suspension 2 DAY OF SURGERY, REMOVE PATCH & START 1 DROP IN LEFT EYE TWICE A DAY DAY OF SURGERY, REMOVE PATCH & START 1 DROP IN LEFT EYE TWICE A DAY SOLD: 10/21/2020 [facility] Lisinopril 20 MG Oral Tablet Lisinopril 20 MG Oral Tablet 12:00:00 AM EDT 1 active lisinopril 20 MG Oral Tablet [facility] (Samuel Velazquez MD [facility]) 1 % 10/21/2020 12:00:00 AM EDT drops,suspension 2 DAY OF SURGERY, REMOVE PATCH & START 1 DROP IN LEFT EYE TWICE A DAY DAY OF SURGERY, REMOVE PATCH & START 1 DROP IN LEFT EYE TWICE A DAY SOLD: 11/09/2020 [facility] Atorvastatin 40 MG Oral Tablet Atorvastatin 40 MG Oral Table t 10/21/2020 12:00:00 AM EDT 1 active Atorvast atin MICHELLE (Samuel Velazquez MD [facility]) BromSite 0.075% Ophthalmic Solution BromSite 0.075% Ophthalm ic Solution 10/21/2020 12:00:00 AM EDT aborted bromfenac 0.75 MG/ML Ophthalmic Solution [Bromsite] MICHELLE (Samuel Velazquez MD [facility]) Asprin 82.5 MG Oral Tablet Asprin 82.5 MG Oral Tablet 2020 12:00:00 AM EDT 1 active Asprin MICHELLE ( Samuel Velazquez MD [facility]) Finasteride 5 MG Oral Tablet Finasteride 5 MG Oral Tablet 12:00:00 AM EDT 1 active finasteride 5 MG Oral Tablet [facility] (Samuel Velazquez MD [facility]) moxifloxacin 5 MG/ML Ophthalmic Solution 0.5 % MOXIFLOXACIN HCL 10/21/2020 12:00:00 AM EDT drops 3 3 DAYS PRIOR TO SURGERY, START 1 DROP IN LEFT EYE FOUR TIMES A DAY 3 DAYS PRIOR TO SURGERY, START 1 DROP IN LEFT EYE FOUR TIMES A DAY SOLD: 11/09/2020 [facility] Bisoprolol Fumarate 5 MG Oral Tablet Bisoprolol Fumarate 5 M G Oral Tablet 10/21/2020 12:00:00 AM EDT 1 active bisoprolol fumarate 5 MG Oral Tablet [facility] [facility]) Calcium 500/Vitamin D 500-125 MG-UNIT Oral Tablet Calc ium 500/Vitamin D 500-125 MG-UNIT Oral Tablet 10/21/2020 12:00:00 AM EDT 1 active Calcium 500/Vitamin D [place] (Samuel Velazquez MD [facility]) [facility] Vitamin B12 1000 MCG Oral Tablet [facility] Vitamin B12 1000 MC G Oral Tablet 10/21/2020 12:00:00 AM EDT 1 active [facility] Vitamin B12 [place]HELLE (Samuel Velazquez MD [facility]) Lisinopril 20 MG Oral Tablet LISINOPRIL 09/28/2020 12:00:00 AM EDT tab let 90 TAKE ONE TABLET BY MOUTH EVERY DAY TAKE ONE TABLET BY MOUTH EVERY DAY SOLD: 10/17/2020 [facility] 20 mg 09/28/2020 12:00:00 AM EDT tablet 90 TAKE ONE TABLET BY MOUTH EVERY DAY TAKE ONE TABLET BY MOUTH EVERY DAY SOLD: 01/16/2021 [facility] atorvastatin 40 MG Oral Tablet ATORVASTATIN CALCIUM 07/29/2020 1 2:00:00 AM EDT tablet 90 TAKE ONE TABLET BY MOUTH EVERY D AY TAKE ONE TABLET BY MOUTH EVERY DAY SOLD: 11/09/2020 [facility] atorvastatin 40 MG Oral Tablet ATORVASTATIN CALCIUM 07/29/2020 1 2:00:00 AM EDT tablet 90 TAKE ONE TABLET BY MOUTH EVERY D AY TAKE ONE TABLET BY MOUTH EVERY DAY SOLD: 08/11/2020 [facility] 20 mg 02/24/2020 12:00:00 AM EDT tablet 90 TAKE ONE TABLET BY MOUTH EVERY DAY TAKE ONE TABLET BY MOUTH EVERY DAY SOLD: 07/03/2020 [facility] atorvastatin 40 MG Oral Tablet ATORVASTATIN CALCIUM 01/29/2020 1 2:00:00 AM EDT tablet 90 TAKE ONE TABLET BY MOUTH EVERY D AY TAKE ONE TABLET BY MOUTH EVERY DAY SOLD: 05/02/2020 [facility] atorvastatin 40 MG Oral Tablet ATORVASTATIN CALCIUM 01/29/2020 1 2:00:00 AM EDT tablet 90 TAKE ONE TABLET BY MOUTH EVERY D AY TAKE ONE TABLET BY MOUTH EVERY DAY SOLD: 02/03/2020 [facility] 5 mg 01/28/2020 12:00:00 AM EDT tablet 90 TAKE ONE TABLET BY MOUTH EVERY DAY TAKE ONE TABLET BY MOUTH EVERY DAY SOLD: 08/11/2020 [facility] Finasteride 5 MG Oral Tablet FINASTERIDE 01/28/2020 12:00:00 AM EDT ta blet 90 TAKE ONE TABLET BY MOUTH EVERY DAY TAKE ONE TABLET BY MOUTH EVERY DAY SOLD: 02/03/2020 [facility] Finasteride 5 MG Oral Tablet FINASTERIDE 01/28/2020 12:00:00 AM EDT ta blet 90 TAKE ONE TABLET BY MOUTH EVERY DAY TAKE ONE TABLET BY MOUTH EVERY DAY SOLD: 11/09/2020 [facility] 5 mg 01/28/2020 12:00:00 AM EDT tablet 90 TAKE ONE TABLET BY MOUTH EVERY DAY TAKE ONE TABLET BY MOUTH EVERY DAY SOLD: 11/09/2020 [facility] 5 mg 01/28/2020 12:00:00 AM EDT tablet 90 TAKE ONE TABLET BY MOUTH EVERY DAY TAKE ONE TABLET BY MOUTH EVERY DAY SOLD: 05/02/2020 [facility] Finasteride 5 MG Oral Tablet FINASTERIDE 01/28/2020 12:00:00 AM EDT ta blet 90 TAKE ONE TABLET BY MOUTH EVERY DAY TAKE ONE TABLET BY MOUTH EVERY DAY SOLD: 05/02/2020 [facility] 5 mg 01/28/2020 12:00:00 AM EDT tablet 90 TAKE ONE TABLET BY MOUTH EVERY DAY TAKE ONE TABLET BY MOUTH EVERY DAY SOLD: 02/03/2020 [facility] Administration Of Flu Vaccine 01/28/2020 12:00:00 AM EDT completed [facility] ([facility]) Medication administered onsite Finasteride 5 MG Oral Tablet FINASTERIDE 01/28/2020 12:00:00 AM EDT ta blet 90 TAKE ONE TABLET BY MOUTH EVERY DAY TAKE ONE TABLET BY MOUTH EVERY DAY SOLD: 08/11/2020 [facility] 5 mg 12/30/2019 12:00:00 AM EDT tablet 30 TAKE 1 TABLET BY MOUTH EVERY DAY TAKE 1 TABLET BY MOUTH EVERY DAY SOLD: 01/08/2020 [facility] 40 mg 11/27/2019 12:00:00 AM EDT tablet 30 TAKE ONE TABLET BY MOUTH EVERY DAY TAKE ONE TABLET BY MOUTH EVERY DAY SOLD: 01/08/2020 [facility] Finasteride 5 MG Oral Tablet FINASTERIDE 04/12/2019 12:00:00 AM EST ta blet 30 TAKE ONE TABLET BY MOUTH EVERY DAY TAKE ONE TABLET BY MOUTH EVERY DAY SOLD: 01/08/2020 [facility] Insurance Providers Payer name Policy type / Coverage type Policy ID Covered libertarian ID Covered libertarian's relationship to beltrán Policy Beltrán Plan Information MEDICARE BLUE PPO 306 [id number] SP [id number] BCBS [place] PPO 302/[id number] SP [id number] MEDICARE BLUE PPO 306 [id number] SP [id number] [facility] Trad/MX Medigap Part B [id number] Self Z [id number] [facility] Trad/MX Medigap Part B [id number] Self Z [id number] [facility] [place] Trad/MX Medigap Part B [id number] Self Z [id number] [facility] [place] Trad/MX Medigap Part B [id number] Self Z [id number] [place] Trad/MX Commercial [id number] Self Z [id number] [place] Trad/MX Commercial [id number] Self Z [id number] [place] Trad/MX Commercial [id number] Self Z [id number] [place] Trad/MX Commercial [id number] Self Z [id number] [place] Trad/MX Commercial [id number] Self BS [place] Trad/MX Commercial [id number] Self 802 [place] Trad/MX Medigap Part B [id number] Self V [id number] Medicare Natl Govt Servic Medicare Primary [id number] Self 1 [id number] Medicare Natl Govt Servic Medicare Primary [id number] Self 1 [id number] Medicare Natl Govt Servic Medicare Primary [id number] Self 1 [id number] Medicare Natl Govt Servic Medicare Primary [id number] Self 1 [id number] Medicare Natl Govt Servic Medicare Primary [id number] Self 1 [id number] Medicare Natl Govt Servic Medicare Primary [id number] Self 1 [id number] Medicare Natl Govt Servic Medicare Primary [id number] Self 1 [id number] Medicare Natl Govt Servic Medicare Primary [id number] Self Medicare Natl Govt Servic Medicare Primary [id number] Self 1 [id number] MEDICARE [id number] [place] [id number] Medicare Blue Ppo Commercial [id number] Self [id number] Medicare Blue Ppo Commercial [id number] Self [id number] EXCELLUS BCBS [id number] Crystal VYM [id number] EXCELLUS BCBS [id number] Crystal VYM [id number] EXCELLUS BCBS MEDICARE [id number] [place] [id number] MEDICARE [id number] [place] [id number] MEDICARE [id number] [place] [id number] A Excell[place] Blue Cross and Blue Shield - [place] Blue Cross/B lue Shield [id number] Self [id number] [facility] Medicare Medicare Part B [id number] Self [id number] BCBS of [facility] Other 0 [id number] Se lf 0 BCBS of [facility] Other 0 [id number] Se lf 0 EXCELLUS BLUE CROSS BLUE SHIELD HEA [id number] S [id number] EXCELLUS BCBS MEDICARE Medicare [facility] EXCELLUS BCBS B [id number] S VYM [id number] BCBS of [facility] [place] Other 0 [id number] Se lf 0 BCBS of [facility] [place] Other 0 [id number] Se lf 0 BCBS of [facility] [place] Other 0 [id number] Se lf 0 BCBS of [facility] [place] Other 0 [id number] Se lf 0 Problems, Conditions, and Diagnoses Code Display Name Description Problem Type Effective Dates Data Source(s) 82605252 Subluxation of lens (disorder) Subluxation of Lens Pro blem 12/24/2020 12:00:00 AM EDT [place]HEL[place] (Samuel Velazquez MD [facility]) 371.22 Corneal Edema Corneal Edema Problem 11/04/2020 12:00:00 AM EDT [place] (Samuel Velazquez MD [facility]) V43.1 Pseudophakia Pseudophakia Problem 11/04/2020 12:00:00 A M EDT [place] (Samuel Velazquez MD [facility]) 371.22 Corneal Edema Corneal Edema Problem 11/04/2020 12 :00:00 AM EDT - 12/07/2020 12:00:00 AM EDT [place] (Samuel Velazquez MD [facility]) V43.1 Pseudophakia Pseudophakia Problem 11/04/2020 12:00:00 A M EDT [place] (Samuel Velazquez MD [facility]) 371.22 Corneal Edema Corneal Edema Problem 11/04/2020 12 :00:00 AM EDT - 12/07/2020 12:00:00 AM EDT [place] (Samuel Velazquez MD [facility]) V43.1 Pseudophakia Pseudophakia Problem 11/04/2020 12:00:00 A M EDT [place] (Samuel Velazquez MD [facility]) 371.22 Corneal Edema Corneal Edema Problem 11/04/2020 12:00:00 AM EDT [place] (Samuel Velazquez MD [facility]) V43.1 Pseudophakia Pseudophakia Problem 11/04/2020 12:00:00 A M EDT [place] (Samuel Velazquez MD [facility]) 379.21 Vitreous Disorders Degeneration Vitreous Disorders Deg eneration Problem 10/21/2020 12:00:00 AM EDT [place] (Samuel Velazquez MD [facility]) 375.15 Dry Eye Syndrome Dry Eye Syndrome Problem 10/21/2020 12 :00:00 AM EDT [place] (Samuel Velazquez MD [facility]) 366.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 Senile Nuclear Proble m 10/21/2020 12:00:00 AM EDT [place] (Samuel Velazquez MD [facility]) 379.21 Vitreous Disorders Degeneration Vitreous Disorders Deg eneration Problem 10/21/2020 12:00:00 AM EDT [place] (Samuel Velazquez MD [facility]) 375.15 Dry Eye Syndrome Dry Eye Syndrome Problem 10/21/2020 12 :00:00 AM EDT [place] (Samuel Velazquez MD [facility]) 366.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 Senile Nuclear Proble m 10/21/2020 12:00:00 AM EDT [place] (Samuel Velazquez MD [facility]) 379.21 Vitreous Disorders Degeneration Vitreous Disorders Deg eneration Problem 10/21/2020 12:00:00 AM EDT [place] (Samuel Velazquez MD [facility]) 375.15 Dry Eye Syndrome Dry Eye Syndrome Problem 10/21/2020 12 :00:00 AM EDT [place] (Samuel Velazquez MD [facility]) 366.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 Senile Nuclear Proble m 10/21/2020 12:00:00 AM EDT [place] (Samuel Velazquez MD [facility]) 379.21 Vitreous Disorders Degeneration Vitreous Disorders Deg eneration Problem 10/21/2020 12:00:00 AM EDT [place] (Samuel Velazquez MD [facility]) 375.15 Dry Eye Syndrome Dry Eye Syndrome Problem 10/21/2020 12 :00:00 AM EDT [place]LE (Samuel Velazquez MD [facility]) 366.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 Senile Nuclear Proble m 10/21/2020 12:00:00 AM EDT [place]HELLE (Samuel Velazquez MD [facility]) 379.21 Vitreous Disorders Degeneration Vitreous Disorders Deg eneration Problem 10/21/2020 12:00:00 AM EDT [place] (Samuel Velazquez MD [facility]) 375.15 Dry Eye Syndrome Dry Eye Syndrome Problem 10/21/2020 12 :00:00 AM EDT [place] (Samuel Velazquez MD [facility]) 366.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 Senile Nuclear Proble m 10/21/2020 12:00:00 AM EDT MICHELLE (Samuel Velazquez MD [facility]) 379.21 Vitreous Disorders Degeneration Vitreous Disorders Deg eneration Problem 10/21/2020 12:00:00 AM EDT [place]LE (Samuel Velazquez MD [facility]) 375.15 Dry Eye Syndrome Dry Eye Syndrome Problem 10/21/2020 12 :00:00 AM EDT MICHELLE (Samuel Velazquez MD [facility]) 366.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 Senile Nuclear Proble m 10/21/2020 12:00:00 AM EDT [place] (Samuel Velazquez MD [facility]) Surgeries/Procedures Procedure Description Date Indications Data Source(s) DESTRUCTION PREMALIGNANT LESION 1ST 02/17/2021 12:00:0 0 AM EDT [facility] ([facility]) DESTRUCTION PREMALIGNANT LESION 2-14 EA 02/17/2021 12: 00:00 AM EDT [facility] ([facility]) OFFICE OUTPATIENT VISIT 25 MINUTES 02/17/2021 12:00:00 AM EDT [facility] ([facility]) Diabetic Retinal Eye Exam 01/04/2021 12:00:00 AM EDT [facility] ([facility]) ECG ROUTINE ECG W/LEAST 12 LDS W/I&R 12/25/2020 12:00: 00 AM EDT [facility] ([facility]) OFFICE OUTPATIENT VISIT 25 MINUTES 12/25/2020 12:00:00 AM EDT [facility] ([facility]) Diabetic Retinal Eye Exam 12/24/2020 12:00:00 AM EDT [facility] ([facility]) Diabetic Retinal Eye Exam 12/24/2020 12:00:00 AM EDT [facility] ([facility]) Surgical / procedural history Fractured Back 1983. Fractured Arms 1995. Left Thumb Amputation 2004 Surgical / procedural history Fractured Back 1983. Fractured Arms 1995. 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 12:00:00 AM EDT [place]LE (Samuel Velazquez MD [facility]) Extracapsular extraction of lens (procedure) History o f extracapsular cataract extraction PCIOL OS Dr Elise 11/02/2020 11/04/2020 12:00:00 AM EDT MICHELLE (Samuel Velazquez MD [facility]) Diabetic Retinal Eye Exam 11/03/2020 12:00:00 AM EDT [facility] ([facility]) Extracapsular cataract removal with intraocular lens i mplant (Left side) Extracapsular cataract removal with intraocular lens implant (Left side) 11/02/2020 12:00:00 AM EDT [place]LE (Samuel ricks MD [facility]) Diabetic Retinal Eye Exam 10/26/2020 12:00:00 AM EDT [facility] ([facility]) Comprehensive Eye Exam (Signi/Sep Eval. & Man.) Compre hensive Eye Exam (Signi/Sep Eval. & Man.) 10/21/2020 12:00:00 AM EDT [place]LE (Samuel Velazquez MD [facility]) OPH BMTRY PRTL COHER INTRFRMTRY IO LENS PWR MANUEL Ophtha lmic biometry - IOL Master with IOL calculation (Left side, WAIVER OF LIABILITY ON FILE (ABN)) 10/21/2020 12:00:00 AM EDT [place]LE (Samuel Velazquez MD [facility]) Surgical / procedural history Fractured Back 1983. Fractured Arms 1995. Left Thumb Amputation 2004 Surgical / procedural history Fractured Back 1983. Fractured Arms 1995. Left Thumb Amputation 200410/21/2020 12:00:00 AM EDT [place] (Samuel Velazquez MD [facility]) OPH BMTRY PRTL COHER INTRFRMTRY IO LENS PWR MANUEL Ophtha lmic biometry - IOL Master with IOL calculation (TC, 26, LT, GA) 10/21/2020 12:00:00 AM EDT [place] (Samuel Velazquez MD [facility]) Comprehensive Eye Exam (25) Comprehensive Eye Exam (25) 01/2021 12:00:00 AM EDT [place] (Samuel Velazquez MD [facility]) OFFICE OUTPATIENT VISIT 15 MINUTES 07/30/2020 12:00:00 AM EDT [facility] ([facility]) Impacted Cerumen Irrigat/Lavage 04/29/2020 12:00:00 AM EST [facility] ([facility]) Results ID Date Data Source [id number] 02/17/2021 02:12:00 PM EDT [facility] ([facility]) Name Value Range Interpretation Code Description Data Lisa rce(s) Supporting Document(s) Cholesterol [Mass/volume] in Serum or Plasma 140 mg/dL 131-200 [facility] ([facility]) Triglyceride [Mass/volume] in Serum or Plasma 26 mg/dL 30-150 [facility] ([facility]) Cholesterol in HDL [Mass/volume] in Serum or Plasma 97 mg/dL 35-60 [facility] ([facility]) Cholesterol in LDL [Mass/volume] in Serum or Plasma by calcu lation 38 CALC 50-159 [facility] ([facility]) ID Date Data Source [id number] 02/17/2021 02:12:00 PM EDT [facility] ([facility]) Name Value Range Interpretation Code Description Data Lisa rce(s) Supporting Document(s) Glucose [Mass/volume] in Serum or Plasma 100 mg/dL 74-99 [facility] ([facility]) 100-125 mg/dL PRE-DIABETES/FASTING >126 mg/dL DIABETES/FASTING Urea nitrogen [Mass/volume] in Serum or Plasma 16 mg/dL 7-18 [facility] ([facility]) Sodium [Moles/volume] in Serum or Plasma 139 meq/L 136-145 [facility] ([facility]) Creatinine 1.2 mg/dL 0.6-1.3 [facility]) Potassium [Moles/volume] in Serum or Plasma 4.2 meq/L 3.5-5.1 [facility] ([facility]) Chloride [Moles/volume] in Serum or Plasma 104 meq/L 98-107 [facility] ([facility]) Carbon dioxide, total [Moles/volume] in Serum or Plasma 29 meq/L 21 -32 [facility] ([facility]) Total Bilirubin 0.8 mg/dL 0.2-1.0 [facility] ([facility]) Calcium [Mass/volume] in Serum or Plasma 8.9 mg/dL 8.5-10.1 [facility] ([facility]) Aspartate aminotransferase [Enzymatic activity/volume] in Serum or Plasma 24 U/L 15-37 [facility] ([facility] ) Alkaline phosphatase isoenzyme [Units/volume] in Serum or Pl asma 113 mg/dL 46-116 [facility] Alanine aminotransferase [Enzymatic activity/volume] in Seru m or Plasma 28 U/L 12-78 [facility] ([facility]) Proteinase 3 Ab [Units/volume] in Serum 7.0 g/dL 6.4-8.2 [facility] ([facility]) Albumin [Mass/volume] in Serum or Plasma 4.0 g/dL 3.4-5.0 [facility] ([facility]) A/G Ratio 1.33 CALC 1.00-1.90 [facility] Glomerular filtration rate/1.73 sq M pre dicted among non-blacks [Volume Rate/Area] in Serum or Plasma by Creatinine-based formula (MDRD) 59 mL/min [facility] Glomerular filtration rate/1.73 sq M pre dicted among blacks [Volume Rate/Area] in Serum or Plasma by Creatinine-based formula (MDRD) Laboratory test result [facility] ([facility]) <content>CHRONIC KIDNEY DISEASE STAGING PER NKF</content>
<content></content>
<content>STAGE I & II GFR >= 60 NORMAL TO MILDLY DECREASED</content>
<content>STAGE III GFR 30-59 MODERATELY DECREASED</content>
<content>STAGE IV GFR 15-29 SEVERELY DECREASED</content>
<content>STAGE V GFR <15 VERY LITTLE GFR LEFT</content>
<content>ESRD GFR <15 ON SEAFOOD SERVICE TEAM MEMBER</content>
<content></content> ID Date Data Source [id number] 02/17/2021 02:12:00 PM EDT [facility] ([facility]) Name Value Range Interpretation Code Description Data Lisa rce(s) Supporting Document(s) Leukocytes [#/volume] in Blood by Automated count 7.0 x10*3/UL 4.1-10 .9 [facility] Erythrocytes [#/volume] in Blood by Automated count 3.72 x10*6/UL 4.2 0-6.30 [facility] ([facility]) MCV 92.7 fL 80.0-97.0 [facility] Hemoglobin [Mass/volume] in Blood 12.1 g/dL 12.0-18.0 [facility] ([facility]) Hematocrit [Volume Fraction] of Blood by Automated count 34.5 % 3 7.0-51.0 [facility] ([facility]) MCHC 35.2 g/dL 31.0-38.0 [facility] MCH 32.6 pg 26.0-32.0 [facility] Erythrocyte distribution width [Ratio] by Automated count 13.3 % 11.6-13.7 [facility] ([facility]) MPV 8.6 FL 7.8-11.0 [facility] Platelets [#/volume] in Blood by Automated count 220 x10*3/UL 140-440 [facility] ([facility]) Mid % 5.6 % 1.7-9.3 [facility] Lymph % 22.5 % 10.0-58.5 [facility] Neut % 71.9 % 37.0-92.0 [facility] Neut # 5.0 x10*3/UL 2.0-7.8 [facility] ([facility]) Lymph # 1.5 x10*3/UL 0.6-4.1 [facility] ([facility]) Mid # 0.5 x10*3/UL 0.1-0.6 [facility] ([facility]) ID Date Data Source [id number] 01/05/2021 08:30:00 AM EDT [facility] [place] [address] [address] [facility] [place], [place] [address]IFQYCNN NAME: RAN JONESDATE OF : 1945REPORT: OPERATIONPATIENT NUMBER: [id number] STATUS: SDMEDICAL RECORD NUMBER: [id number] OF ADMISSION: 12/29/2020ATE OF DISCHARGE:ROOM: 00DATE OF PROCEDURE: 1PREOPERATIVE DIAGNOSES: Intraocular lens dislocation, left eye, vitreousprolapse.POSTOPERATIVE DIAGNOSES: Intraocular lens dislocation, left eye, vitreousprolapse.PROCEDURES: Left eye,1. 25-gauge pars plana vitrectomy.2. Anterior vitrectomy.3. IOL reposition.SURGEON: Cory Freire MDCOMPLICATIONS: None.BLOOD LOSS: Minimal.SPECIMEN: None.ANESTHESIA: MAC, PBB.BRIEF HISTORY: This patient presented with intraocular lens dislocationshortly after cataract surgery. Risks, benefits, alternatives werediscussed with him. He requested to proceed with vitrectomy, anyassociated procedures, IOL Rescue versus exchange and signed the consentform.DESCRIPTION OF PROCEDURE: The patient was met and greeted in thepreoperative holding area. The correct eye was confirmed and marked. Hewas then escorted to the operating room. A time-out was performed. Hethen underwent intravenous sedation followed by peribulbar block. The eyewas prepped and draped in the usual sterile ophthalmic fashion. Lidspeculum was inserted. Trocar cannulas were placed 3.5 mm away from limbusinferotemporal, supratemporal, and superonasal. A 4 mm infusion line wasplaced inside the vitreous cavity and then turned on. Eye was inspected. There was a dislocated three-piece IOL partially embedded in the anteriorvitreous. Core vitrectomy was performed followed by anterior vitrectomy. A peripheral iridectomy was done superonasally. Then with the torquemarker, 3 and 9 o'clock were marked and 2 mm posterior to the [id number] trocars were placed. Through those, IOL haptics wereexternalized. The lens was then in good position. Ends of the hapticswere flanged with low temp cautery. Instruments were then removed from theeye. The sclerotomies were sutured with plain gut. The eye pressureremained normotensive. The lid speculum was then removed. The drapes wereremoved. The eye was cleaned and dried. Drop of timolol and Maxitrolointment was placed on the eye. The eye was patched and shielded. He wasthen escorted back to the recovery unit in stable condition and asked tofollow up in clinic the next morning.DICTATED BY: Cory Freire, MDDictated: 12/29/2020 14:23DT: 12/29/2020 14:25Job #: [id number]: [facility] computer generated reports are not confirmed orauthenticated unless they are signed by the providerElectronically Authenticated by:CORY FREIRE MD On 01/05/2021 08:30 AM EDT Name Value Range Interpretation Code Description Data Lisa rce(s) Supporting Document(s) ID Date Data Source [id number] 12/24/2020 01:45:00 PM EDT [facility] Name Value Range Interpretation Code Description Data Lisa rce(s) Supporting Document(s) SARS-CoV-2 RNA Resp Ql SAUNDRA+probe NOT DETECTED [facility] This lab was ordered by RAYA broussard and reported by RAYA Dasilva. ID Date Data Source [id number] 10/28/2020 02:00:00 PM EDT [facility] Name Value Range Interpretation Code Description Data Lisa rce(s) Supporting Document(s) SARS-CoV-2 (COVID-19) RNA [Presence] in Respiratory specimen by SAUNDRA with probe detection Not Detected [facility] This lab was ordered by [facility] and reported by [facility]. ID Date Data Source [id number] 07/30/2020 09:50:00 AM EDT [facility] Name Value Range Interpretation Code Description Data Lisa rce(s) Supporting Document(s) Prostate specific Ag [Mass/volume] in Serum or Plasma 0.90 ng/mL [facility] ([facility]) This assay was performed on the Siemens Dimension EXL using the B- Galactosidase/CPRG methodology and should not be compared interchangeably with other methods. The PSA should not be used alone as a screening test for the presence or absence of malignant disease. ID Date Data Source [id number] 01/28/2020 11:09:00 AM EDT [facility] ([facility]) Name Value Range Interpretation Code Description Data Lisa rce(s) Supporting Document(s) Prostate specific Ag [Mass/volume] in Serum or Plasma Laboratory test result [facility]) ID Date Data Source [id number] 01/28/2020 11:08:00 AM EDT [facility] ([facility]) Name Value Range Interpretation Code Description Data Lisa rce(s) Supporting Document(s) Cholesterol [Mass/volume] in Serum or Plasma 160 mg/dL 131-200 [facility] ([facility]) Cholesterol in HDL [Mass/volume] in Serum or Plasma 90 mg/dL 35-60 [facility] ([facility]) Triglyceride [Mass/volume] in Serum or Plasma 32 mg/dL 30-150 [facility] ([facility]) Cholesterol in LDL [Mass/volume] in Serum or Plasma by calcu lation 64 CALC 50-159 [facility] ([facility]) ID Date Data Source [id number] 01/28/2020 11:08:00 AM [facility] ([facility]) Name Value Range Interpretation Code Description Data Lisa rce(s) Supporting Document(s) Urea nitrogen [Mass/volume] in Serum or Plasma 14 mg/dL 7-18 [facility] ([facility]) Glucose [Mass/volume] in Serum or Plasma 94 mg/dL 74-99 [facility] ([facility]) 100-125 mg/dL PRE-DIABETES/FASTING >126 mg/dL DIABETES/FASTING Potassium [Moles/volume] in Serum or Plasma 4.7 meq/L 3.5-5.1 [facility] ([facility]) Sodium [Moles/volume] in Serum or Plasma 141 meq/L 136-145 [facility] ([facility]) Creatinine 1.1 mg/dL 0.6-1.3 [facility] ([facility]) Chloride [Moles/volume] in Serum or Plasma 104 meq/L 98-107 [facility] ([facility]) Carbon dioxide, total [Moles/volume] in Serum or Plasma 28 meq/L 21 -32 [facility] ([facility]) Calcium [Mass/volume] in Serum or Plasma 9.0 mg/dL 8.5-10.1 [facility] ([facility]) Alkaline phosphatase isoenzyme [Units/volume] in Serum or Pl asma 124 mg/dL 46-116 [facility] ([facility]) Total Bilirubin 0.5 mg/dL 0.2-1.0 [facility] ([facility]) Aspartate aminotransferase [Enzymatic activity/volume] in Serum or Plasma 26 U/L 15-37 [facility] ([facility] ) Albumin [Mass/volume] in Serum or Plasma 4.0 g/dL 3.4-5.0 [facility] ([facility]) Proteinase 3 Ab [Units/volume] in [facility] 7.1 g[facility]dL 6.4-8.[facility] Alanine aminotransferase [Enzymatic activity/volume] in Seru m or Plasma 29 U/L 12-78 [facility] ([facility]) Glomerular filtration rate/1.73 sq M pre dicted among non-blacks [Volume Rate/Area] in Serum or Plasma by Creatinine-based formula (MDRD) Laboratory test [facility] Glomerular filtration rate/1.73 sq M pre dicted among blacks [Volume Rate/Area] in Serum or Plasma by Creatinine-based formula (MDRD) Laboratory test result [facility] ([facility]) <content>CHRONIC KIDNEY DISEASE STAGING PER NKF</content>
<content></content>
<content>STAGE I & II GFR >= 60 NORMAL TO MILDLY DECREASED</content>
<content>STAGE III GFR 30-59 MODERATELY DECREASED</content>
<content>STAGE IV GFR 15-29 SEVERELY DECREASED</content>
<content>STAGE V GFR <15 VERY LITTLE GFR LEFT</content>
<content>ESRD GFR <15 ON [employer] TEAM MEMBER</content>
<content></content> A/G Ratio 1.29 CALC 1.00-1.90 [facility] ([facility]) ID Date Data Source [id number] 01/28/2020 11:08:00 AM EDT [facility] ([facility]) Name Value Range Interpretation Code Description Data Lisa rce(s) Supporting Document(s) Leukocytes [#/volume] in Blood by Automated count 5.3 x10*3/UL 4.1-10 .9 [facility] ([facility]) Hematocrit [Volume Fraction] of Blood by Automated count 33.6 % 3 7.0-51.0 [facility] ([facility]) Erythrocytes [#/volume] in Blood by Automated count 3.63 x10*6/UL 4.2 0-6.30 [facility] ([facility]) Hemoglobin [Mass/volume] in Blood 11.9 g/dL 12.0-18.0 [facility] ([facility]) NOTE: RESULT VERIFIED. MCH 32.8 pg 26.0-32.0 [facility]) MCV 92.4 fL 80.0-97.0 [facility] ([facility]) MCHC 35.5 g/dL 31.0-38.0 [facility] ([facility]) Erythrocyte distribution width [Ratio] by Automated count 12.8 % 11.6-13.7 [facility] ([facility]) MPV 8.2 FL 7.8-11.0 [facility]) Platelets [#/volume] in Blood by Automated count 228 x10*3/UL 140-440 [facility] ([facility]) Mid % 7.5 % 1.7-9.3 [facility] ([facility]) Neut % 70.4 % 37.0-92.0 [facility] ([facility]) Lymph % 22.1 % 10.0-58.5 [facility] ([facility]) Lymph # 1.1 x10*3/UL 0.6-4.1 [facility] ([facility]) Mid # 0.5 x10*3/UL 0.1-0.6 [facility] ([facility]) Neut # 3.7 x10*3/UL 2.0-7.8 [facility] ([facility]) Procedure Social History Code Duration Value Status Description Data Source(s ) Smoking 12/24/2020 07:59:30 AM EDT Ex-smoker (finding) complet ed Ex-smoker (finding) [facility]HELLE (Samuel Velazquez MD [facility]) Smoking 12/07/2020 03:35:59 PM EDT Ex-smoker (finding) complet ed Ex-smoker (finding) [facility] (Samuel Velazquez MD [facility]) Smoking 11/13/2020 08:26:39 AM EDT Ex-smoker (finding) complet ed Ex-smoker (finding) [place] (Samuel Velazquez MD [facility]) Smoking 11/04/2020 09:30:29 AM EDT Ex-smoker (finding) complet ed Ex-smoker (finding) [place] (Samuel Velazquez MD [facility]) Smoking 10/21/2020 09:35:29 AM EDT Ex-smoker (finding) complet ed Ex-smoker (finding) [place] (Samuel Velazquez MD [facility]) Vital Signs ID Date Data Source UNK Name Value Range Interpretation Code Description Data Source(s) Systolic blood pressure 122 mm[Hg] 122 mm[Hg] M [facility] ([facility]) Diastolic blood pressure 80 mm[Hg] 80 mm[Hg] [facility] ([facility]) Heart rate 58 /min 58 /min [facility] ([facility]) Body height 68 [in_i] 68 [in_i] [facility] ([facility]) 5'8" Body weight 150.00 [lb_av] 150.00 [lb_av] [facility] ([facility]) Body mass index (BMI) [Ratio] 22.8 kg/m2 22.8 k g/m2 [facility] ([facility]) Systolic blood pressure 136 mm[Hg] 136 mm[Hg] M [facility] ([facility]) Diastolic blood pressure 74 mm[Hg] 74 mm[Hg] [facility] ([facility]) Heart rate 60 /min 60 /min [facility] ([facility]) Body height 68 [in_i] 68 [in_i] [facility] ([facility]) 5'8" Body weight 152.00 [lb_av] 152.00 [lb_av] [facility] ([facility]) Body mass index (BMI) [Ratio] 23.1 kg/m2 23.1 k g/m2 [facility] ([facility]) Heart rate 52 /min 52 /min [facility] ([facility]) Systolic blood pressure 150 mm[Hg] 150 mm[Hg] M [facility] ([facility]) Diastolic blood pressure 88 mm[Hg] 88 mm[Hg] [facility] ([facility]) Body weight 157.00 [lb_av] 157.00 [lb_av] [facility] ([facility]) Oxygen saturation in Arterial blood by Pulse oximetry 99 % 99 % [facility] ([facility]) RM Air Body mass index (BMI) [Ratio] 23.9 kg/m2 23.9 k g/m2 [facility] ([facility]) Systolic blood pressure 128 mm[Hg] 128 mm[Hg] [facility]) Diastolic blood pressure 80 mm[Hg] 80 mm[Hg] [facility] ([facility]) Body height 68 [in_i] 68 [in_i] [facility] ([facility]) 5'8" Systolic blood pressure 124 mm[Hg] 124 mm[Hg] [facility] ([facility]) Diastolic blood pressure 84 mm[Hg] 84 mm[Hg] [facility] ([facility]) Heart rate 60 /min 60 /min [facility] ([facility]) Body height 68 [in_i] 68 [in_i] [facility] ([facility]) 5'8" Body weight 159.00 [lb_av] 159.00 [lb_av] [facility] ([facility]) Oxygen saturation in Arterial blood by Pulse oximetry 98 % 98 % [facility] ([facility]) RM Air Body mass index (BMI) [Ratio] 24.2 kg/m2 24.2 k g/m2 [facility] ([facility]) Systolic blood pressure 120 mm[Hg] 120 mm[Hg] M [facility] ([facility]) Body mass index (BMI) [Ratio] 23.3 kg/m2 23.3 k g/m2 [facility] ([facility]) Diastolic blood pressure 82 mm[Hg] 82 mm[Hg] [facility] ([facility]) Heart rate 58 /min 58 /min [facility] ([facility]) Body height 68 [in_i] 68 [in_i] [facility] ([facility]) 5'8" Body weight 153.00 [lb_av] 153.00 [lb_av] [facility] ([facility]) Oxygen saturation in Arterial blood by Pulse oximetry 98 % 98 % [facility] ([facility]) Patient Treatment Plan of Care Planned Activity Planned Date Details Description Data Source (s) BromSite 0.075% Ophthalmic Solution 11/23/2020 12:00:00 AM EDT [facility] (Samuel Velazquez MD [facility]) Inveltys 1% Ophthalmic Suspension 11/23/2020 12:00:00 AM EDT [place] (Samuel Velazquez MD [facility]) BromSite 0.075% Ophthalmic Solution 10/21/2020 12:00:00 AM EDT [facility] (Samuel Velazquez MD [facility]) moxifloxacin 5 MG/ML Ophthalmic Solution 10/21/2020 12:00:00 AM EDT [facility] (Samuel Velazquez MD [facility]) Inveltys 1% Ophthalmic Suspension 10/21/2020 12:00:00 AM EDT [facility] (Samuel Velazquez MD [facility])
[2021-02-28] MEDS ORDERED: ACETAMINOPHEN 325 MG TAB PO ONE (21:40)
--- NOTE | 2021-02-28 22:15 | REPVR ---
PROCEDURE INFORMATION: Exam: CT Cervical Spine Without Contrast Exam date and time: 02/28/2021 8:26 PM Age: 76 years old Clinical indication: Injury or trauma; Kicked by horse; Blunt trauma; Additional info: Head injury with neck pain TECHNIQUE: Imaging protocol: Computed tomography images of the cervical spine without contrast. Radiation optimization: All CT scans at this facility use at least one of these dose optimization techniques: automated exposure control; mA and/or kV adjustment per patient size (includes targeted exams where dose is matched to clinical indication); or iterative reconstruction. COMPARISON: MRI IAC'S W/O FOLL WITH CON 01/21/2015 4:45 PM FINDINGS: Vertebrae: There is an acute, minimally displaced fracture of the anterior aspect of the left transverse process of C2 (images 25-26 of the axial series 301). There is also an acute, minimally displaced fracture of the anterior aspect of the right transverse process of C3 (image 28 of the axial series 301). There are acute, mildly displaced fractures of the spinous process of C3 and posterior aspect of the left superior articular process of C3 (images 46 and 58 of the sagittal series 304). C1-C2: There are degenerative changes involving the atlantoaxial joint. C2-C3: At the C2-C3 level, there is severe loss of disc height dorsally, a 3 mm retrolisthesis of C2 on C3, severe osteoarthritis of the left facet joint, mild osteoarthritis of the right facet joint and moderate spinal canal stenosis. C3-C4: At the C3-C4 level, there is severe loss of disc height, some bony bridging across the disc space, posterior osseous ridging, left uncovertebral hypertrophy, ankylosis of the left facet joint, partial ankylosis of the right facet joint, mild spinal canal stenosis, and moderate left neural foraminal stenosis. C4-C5: At the C4-C5 level, there is severe loss of disc height, some bony bridging across the disc space, posterior osseous ridging, ankylosis of the left facet joint, partial ankylosis of the right facet joint, mild spinal canal stenosis, and moderate left neural foraminal stenosis. C5-C6: At the C5-C6 level, there is severe loss of disc height, a broad-based posterior disc osteophyte complex, endplate spurs, left uncovertebral hypertrophy, ankylosis and hypertrophy of the left facet joint, moderate spinal canal stenosis, and mild left neural foraminal stenosis. C6-C7: At the C6-C7 level, there is severe loss of disc height, vacuum phenomenon in the intervertebral disc, a broad-based posterior disc osteophyte complex, endplate spurs, bilateral hypertrophy, moderate spinal canal stenosis and mild bilateral neural foraminal stenosis. C7-T1: At the C7-T1 level, there is mild loss of disc height, a 2 mm grade 1 anterolisthesis of C7 on T1 with uncovering of the disc posteriorly, and severe osteoarthritis of the facet joints. T1-T2: At the T1-T2 level, there is severe osteoarthritis of the facet joints. T2-T3: At the T2-T3 level, there is severe osteoarthritis of the facet joints. Epidural space: There is a high attenuation posterior epidural fluid collection measuring up to 8 mm in thickness extending from approximately the C1 level to the C6-C7 level, which is compatible an acute posterior spinal epidural hematoma. Soft tissues: There is soft tissue edema in the posterior aspect of the upper cervical spine. Prevertebral Space: No prevertebral soft tissue swelling. Vasculature: There are atherosclerotic calcifications of the carotid bulbs. Lungs: There is scarring of the lung apices. There are centrilobular and paraseptal emphysematous changes in the lung apices. The lungs were not fully imaged. IMPRESSION: 1. Acute posterior spinal epidural hematoma extending from approximately the C1 level to the C6-C7 level. 2. Acute, minimally displaced fracture of the anterior aspect of the left transverse process of C2. 3. Acute, mildly displaced fractures of the spinous process of C3 and posterior aspect of the left superior articular process of C3, and an acute minimally displaced fracture of the anterior aspect of the right transverse process of C3. 4. C2-C3: Moderate spinal canal stenosis. 5. C3-C4: Mild spinal canal stenosis and moderate left neural foraminal stenosis. 6. C4-C5: Mild spinal canal stenosis and moderate left neural foraminal stenosis. 7. C5-C6: Moderate spinal canal stenosis and mild left neural foraminal stenosis. 8. C6-C7: Moderate spinal canal stenosis and mild bilateral neural foraminal stenosis. Electronically signed by: Rolando Underwood On 02/28/2021 22:15:37 PM
--- NOTE | 2021-02-28 22:16 | REPVR ---
PROCEDURE INFORMATION: Exam: CT Head Without Contrast Exam date and time: 02/28/2021 8:26 PM Age: 76 years old Clinical indication: Injury or trauma; Kicked by horse; Blunt trauma (contusions or hematomas); Additional info: Head injury with neck pain TECHNIQUE: Imaging protocol: Computed tomography of the head without contrast. Radiation optimization: All CT scans at this facility use at least one of these dose optimization techniques: automated exposure control; mA and/or kV adjustment per patient size (includes targeted exams where dose is matched to clinical indication); or iterative reconstruction. COMPARISON: 1. MRI IAC'S W/O FOLL WITH CONTRAST 01/21/2015 4:[address] Spine,cervical w/o contrast 02/28/2021 8:23:32 PM FINDINGS: Brain: No acute intracranial hemorrhage is seen. No mass effect, midline shift, or herniation is noted. There is no CT evidence for an acute large vessel territorial infarct. There are non-specific foci of low attenuation in the periventricular and subcortical white matter, which are likely the sequela of chronic small vessel ischemic injury and allowing for differences in technique are stable compared to the MRI IAC's on 01/21/2015. Cerebral ventricles: The ventricles are mildly dilated in proportion to the sulci, which is compatible with mild generalized cerebral and cerebellar volume loss that is similar in appearance compared to the prior MRI IAC's on 01/21/2015. Paranasal sinuses: The imaged portions of the sinuses are well aerated. No air-fluid levels are noted in the sinuses. Mastoid air cells: The mastoid air cells are well aerated. Orbital cavity: The globes and orbits are intact. Bones/joints: The skull is intact. No suspicious osteolytic or osteoblastic lesion. Soft tissues: Unremarkable. No soft tissue fluid collection. Other findings: There is a partially imaged acute posterior spinal epidural hematoma at the C1 level. See further details in the CT cervical spine report on 02/28/2021. IMPRESSION: 1. Partially imaged acute posterior spinal epidural hematoma at the C1 level. See further details in the CT cervical spine report on 02/28/2021. 2. Intact skull. No acute intracranial hemorrhage or acute intracranial abnormality. 3. Mild cerebral and cerebellar atrophy and chronic microangiopathic changes, which are stable compared to the MRI IAC's on 01/21/2015. Electronically signed by: Rolando Underwood On 02/28/2021 22:16:11 PM
[2021-02-28] MEDS ORDERED: MORPHINE 4 MG/ML 1ML VIAL/SYRINGE (J2270) IV ONE (22:35)
[2021-02-28 23:47] VITALS: BP 161/81
[2021-02-28 23:51] LABS: RSV AMPLIFICATION POSITIVE (NEGATIVE)
== END 2021-02-28 23:50 | disposition short-term general hospital (02) ==
LOC: EDBD 19:55 → EDSEX 19:55 → M ED 19:55
DX: S06.4X0A Epidural hemorrhage without loss of consciousness, initial encounter (principal); S12.000A Unspecified displaced fracture of first cervical vertebra, initial encounter for closed fracture; S12.100A Unspecified displaced fracture of second cervical vertebra, initial encounter for closed fracture; S12.200A Unspecified displaced fracture of third cervical vertebra, initial encounter for closed fracture; W55.12XA Struck by horse, initial encounter; Y92.71 Barn as the place of occurrence of the external cause; Y93.59 Activity, other involving other sports and athletics played individually; Y99.9 Unspecified external cause status; M48.02 Spinal stenosis, cervical region; M19.09 Primary osteoarthritis, other specified site; G31.9 Degenerative disease of nervous system, unspecified; I10 Essential (primary) hypertension; Z79.82 Long term (current) use of aspirin; Z79.899 Other long term (current) drug therapy

== ENCOUNTER → 2021-06-11 | Outpatient (CLI) | payer MEDICARE | LOC: M WUC 14:41 | PROVIDERS: ATTEND Physician Assistant Medical | DX: M25.512 Pain in left shoulder (principal) ==

== ENCOUNTER 2021-07-28 19:48 | Emergency (ER) | payer MEDICARE ==
[~2021-07-28] VITALS: Ht 175.3 cm; Wt 55.0 kg
[2021-07-28 19:57] VITALS: BP 72/35
== END 2021-07-28 22:17 | disposition expired ==
LOC: M ED 19:48
DX: I46.9 Cardiac arrest, cause unspecified (principal)